=== PATIENT | male | born 1955 | race African-American/Black ===

== ENCOUNTER 2016-10-04 09:13 | Inpatient (IN) | payer BC, OTHER ==
[2016-10-04] VITALS (7 sets, daily range): BP systolic 117–156; BP diastolic 58–93; PULSE 98–103; RESP 16–22; TEMP 98.4; Ht 190.5 cm; Wt 161.6 kg
[~2016-10-04] VITALS: Ht 190.5 cm; Wt 161.6 kg
--- NOTE | 2016-10-04 10:14 | ERA ---
ER Documentation Chief Complaint Date/Time DATE: 10/04/16 TIME: 10:14 Chief Complaint RIGHT THIGH PAIN NON TRAUMATIC NO CHEST PAIN. MILD SOB WITH EXERTION. HPI 60-year-old male with multiple medical problems including hypertension, diabetes , CHF and history of DVTs presenting to the ER with worsening shortness of breath for the past 4 days and right lower extremity pain in the medial aspect of his thigh. The pain is better with rest, worse with ambulation. He denies any numbness or weakness in his extremities. He has had no associated fever, chills, chest pain, cough. [facility] and in the past they were talking about putting in an IVC filter as he had bilateral lower extremity DVTs but they did not. Patient is on Coumadin ROS All systems reviewed and are negative except as per history of present illness. Medications Home Meds Reported Medications Prednisone* (Prednisone*) 10 Mg Tab, 10 MG PO DAILY Y for PAIN, TAB 10/04/16 Acetaminophen* (Acetaminophen*) 500 MG Extra Strength Tablet, 500 MG PO Q12 Y for PAIN AND OR ELEVATED TEMP, TAB 10/04/16 Warfarin Sodium* (Coumadin*) 5 Mg Tablet, 5 MG PO DAILY, TAB 10/04/16 Atorvastatin* (Atorvastatin*) 40 Mg Tablet, 40 MG PO QHS, #30 TAB 10/04/16 Atorvastatin* (Atorvastatin*) 40 Mg Tablet, 40 MG PO QHS, #30 TAB 10/04/16 Pyridoxine Hcl* (Pyridoxine Hcl*) 50 Mg Tablet, 50 MG PO DAILY, TAB 10/04/16 Amiodarone Hcl* (Pacerone*) 200 Mg Tablet, 200 MG PO DAILY, TAB 10/04/16 Glipizide* (Glipizide*) 5 Mg Tablet, 5 MG PO DAILY, TAB 10/04/16 Krill Oil (KRILL OIL) 500 Mg Capsule, 500 MG PO DAILY, CAP 10/04/16 Multivitamins* (Theragran*) 1 Tab Tab, 1 TAB PO DAILY, TAB 10/04/16 Furosemide* (Furosemide*) 40 Mg Tablet, 40 MG PO DAILY, TAB 10/04/16 Carvedilol* (Carvedilol*) 12.5 Mg Tablet, 12.5 MG PO BID, #60 TAB 10/04/16 Lisinopril* (Lisinopril*) 10 Mg Tablet, 10 MG PO DAILY, #30 TAB 10/04/16 Allergies Allergies: Coded Allergies: No Known Allergy (Unverified , 10/04/16) PMhx/Soc Hx Respiratory Disorders: Yes (COPD,) Hx Cardiac Disorders: Yes (Hypertension, CHF) Hx Miscellaneous Medical Probl: Yes (Bilateral lower extremity DVTs) Smoking Status: Former smoker FmHx Family History: No diabetes Physical Exam Vitals Vital Signs Date Time Temp Pulse Resp B/P Pulse Ox O2 Delivery O2 Flow Rate FiO2 10/04/16 13:48 99.1 100 20 147/103 100 Nasal Cannula 2.0 10/04/16 11:30 98.1 95 24 155/90 95 Nasal Cannula 2.0 10/04/16 09:20 Nasal Cannula 2 10/04/16 09:19 97.8 105 22 134/91 95 Physical Exam Const: Appears short of breath, nontoxic, large body habitus Head: Atraumatic Eyes: Normal Conjunctiva ENT: Normal External Ears, Nose and Mouth. Neck: Full range of motion..~ No meningismus. No obvious JVD, limited exam Resp: Diminished breath sounds bilaterally, no rales or rhonchi Cardio: Tachycardic with regular rhythm, no murmurs Abd: Soft, non tender, non distended. Normal bowel sounds Skin: No petechiae or rashes Back: No midline or flank tenderness Ext: Bilateral lower extremity skin changes, no obvious edema. Right inner thigh tender to palpation, no crepitus, no obvious erythema however exam limited as patient has dark skin Neur: Awake and alert Psych: Normal Mood and Affect Result Diagram: 10/04/16 1100 10/04/16 1100 Results 24 hrs Laboratory Tests Test 10/04/16 10:13 10/04/16 11:00 Blood Gas Specimen Source Blood arterial Arterial Blood Date Drawn 10/04/2016 11:05:32 AM Arterial Blood pH (Temp corrected) 7.561 Arterial Blood pCO2 (Temp correct) 24.6mmhg Arterial Blood pO2 (Temp corrected) 70.5mmHG Arterial Blood HCO3 21.6mmol/L Arterial Blood Base Excess 0.8mmol/L Arterial Blood Oxygen Saturation 95.1mmHG Sumanth Test ACCEPTAB Arterial Blood Gas Puncture Site Left Radial Arterial Blood Carboxyhemoglobin 0.4% Arterial Blood Methemoglobin 0.3% Blood Gas A-a O2 Differential 49.8mmHg Oxyhemoglobin Percent 94.4% Total Hemoglobin 13.0g/dl Blood Gas Temperature 37.0C Blood Gas Modality ROOM AIR FiO2 21.0% Blood Gas Critical Value Read Back RICK Farrell Blood Gas Notified Whom [facility] Blood Gas Notified Time 10/04/2016 11:10:05 AM White Blood Count 9.910^3/ul Red Blood Count 4.6310^6/ul Hemoglobin 12.1g/dl Hematocrit 39.4% Mean Corpuscular Volume 85.1fl Mean Corpuscular Hemoglobin 26.1pg Mean Corpuscular Hemoglobin Concent 30.7g/dl Red Cell Distribution Width 15.8% Platelet Count 50376^3/UL Mean Platelet Volume 12.3fl Neutrophils % 77.5% Lymphocytes % 10.9% Monocytes % 10.7% Eosinophils % 0.3% Basophils % 0.2% Nucleated Red Blood Cells % 0.0/100WBC Neutrophils # 7.610^3/ul Lymphocytes # 1.110^3/ul Monocytes # 1.110^3/ul Eosinophils # 0.010^3/ul Basophils # 0.010^3/ul Nucleated Red Blood Cells # 0.010^3/ul Prothrombin Time 17.5Sec Prothrombin Time Ratio 1.4 INR International Normalized Ratio 1.43 Activated Partial Thromboplast Time 34.3Sec Sodium Level 144mmol/L Potassium Level 4.0mmol/L Chloride Level 106mmol/L Carbon Dioxide Level 27mmol/L Anion Gap 15 Blood Urea Nitrogen 15mg/dl Creatinine 1.94mg/dl Glucose Level 119mg/dl Calcium Level 9.4mg/dl Troponin I < 0.012ng/ml Current Medications Medications (Trade) Dose Ordered Sig/[place] Route PRN Reason Start Time Stop Time Status Last Admin Dose Admin Lidocaine (Xylocaine 1% (Mpf)) 5 ml ONCE ONCE SC 10/04/16 11:00 10/04/16 11:02 DC Miscellaneous Information (* Miscellaneous Pharmacy Order) DC previous hepa... ONCE ONCE XX 10/04/16 12:30 10/04/16 12:31 DC Heparin Sodium (Porcine) (Heparin (1000 Units/ml)) 10,000 unit ONCE ONCE IV 10/04/16 12:30 10/04/16 12:31 DC 6/10/17 12:34 Heparin Sodium (Porcine) (Heparin (1000 Units/ml)) 10,000 unit PER PROTOCOL PRN IV aPTT<47 10/04/16 12:30 Heparin Sodium (Porcine) 7200 unit 7,200 unit PER PROTOCOL PRN IV aPTT<47-57 10/04/16 12:30 Heparin Sodium (Porcine) 250 ml @ 0 mls/hr PER PROTOCOL IV 10/04/16 12:30 10/04/16 13:19 Sodium Chloride (NS) 500 ml @ 500 mls/hr Q1H STAT IV 10/04/16 12:13 10/04/16 13:12 DC 10/04/16 12:40 IV Flush 10 ml 10 ml STK-MED ONCE .ROUTE 10/04/16 12:39 10/04/16 12:40 DC Sodium Chloride (NS) 100 ml @ ud STK-MED ONCE .ROUTE 10/04/16 12:39 10/04/16 12:40 DC Iodixanol (Visipaque Locm) 100 ml STK-MED ONCE .ROUTE 10/04/16 12:39 10/04/16 12:40 DC Procedures/MDM Labs: CBC unremarkable BMP shows elevated creatinine INR subtherapeutic EKG: Rate/Rhythm: Sinus tachycardia at 103 bpm QRS, ST, T-waves: No changes consistent w/ acute ischemia Impression: No evidence of ischemia or arrhythmia Chest x-ray shows no acute abnormalities Right lower extremity venous ultrasound: IMPRESSION: Occlusive DVT in the right superficial femoral and popliteal veins. Ze Pelletier Physician Date Time Electronically viewed and signed by Ze Pelletier Physician on 10/04/2016 12:10 CT angiogram chest: IMPRESSION: Emboli in branches of the pulmonary artery to all lobes on the right as well as the left upper lobe. Clear lungs. Ze Pelletier Physician Date Time Electronically viewed and signed by Ze Liyah, Physician on 10/04/2016 13:01 [facility] Patient is presenting with shortness of breath and lower extremity pain. His vitals were notable for tachypnea and tachycardia. His oxygen saturation was within normal limits. However he is at high risk for pulmonary embolism. Ultrasound of the right lower extremity was ordered and confirmed DVT. CTPA was ordered and the risks of the IV contrast in the setting of renal failure was discussed with the patient. However I told him that I believe the benefits outweigh the risks at this time and he agrees. He was started on heparin IV. CT confirmed bilateral pulmonary emboli. He has no evidence of right heart strain at this time. However patient will need admission for further workup, possible IVC filter placement, and anticoagulation. Critical Care Time: 35 minutes Treatments/Evaluations: Close monitoring and treatment of unstable vital signs, cardiorespiratory, and neurologic status, while maintaining tight balance of fluid, respiratory, and cardiac interventions. This time includes discussing the case with the patient and the patients family. This time does not include all procedures stated elsewhere in this record. This time also includes reviewing old records, labs and radiological studies. This time includes examining and re-examining the patient. Additionally, this time also includes arranging care with admitting and consulting physicians. [facility] for [facility]. He will be admitted to our panel physicians. Departure Diagnosis: Primary Impression: Bilateral pulmonary embolism Additional Impressions: Right leg DVT Qualified Code: I82.431 - Deep vein thrombosis (DVT) of popliteal vein of right lower extremity, unspecified chronicity Chronic kidney disease Qualified Code: N18.9 - Chronic kidney disease, unspecified stage Condition: Serious NELLIE CABRERA MD Oct 04, 2016 10:14
--- NOTE | 2016-10-04 10:33 | RADRPT ---
PROCEDURE: XR Chest. CLINICAL INDICATION: Shortness of breath TECHNIQUE: Single frontal chest x-ray. COMPARISON: None. FINDINGS: The lungs are clear of acute infiltrates, edema, effusions, or masses.. The cardiomediastinal silho uette is unremarkable. Degenerative spondylosis of the thoracic spine is present. . IMPRESSION: No acute cardiopulmonary disease. RPTAT: QQ .Frederick Ahuja MD, MD Date Time Electronically viewed and signed by .Frederick Ahuja MD, on 10/04/2016 10:33 .L/
[2016-10-04] MEDS ORDERED: LIDOCAINE 1% (MPF) 5 ML VIAL SC ONE (11:00)
[2016-10-04 11:10] LABS: AADO2 Arterial 49.8 mmHg (7.0-24.0); Allen Test ACCEPTAB; Arterial Base Excess 0.8 mmol/L (-3.0-3); Arterial COHb 0.4 % (0.0-3.0); Arterial Fraction of Oxyhgb 94.4 % (93.0-99.0); Arterial HCO3 21.6 mmol/L (22.0-26.0); Arterial MetHb 0.3 % (0.0-1.5); MODE ROOM AIR
[2016-10-04] MEDS ORDERED: LISI10TA2 PO (11:24)
[2016-10-04] MEDS ORDERED: FURO40TA4 PO (11:25)
[2016-10-04] MEDS ORDERED: CARV12.579 PO (11:25)
[2016-10-04] MEDS ORDERED: MULTI PO (11:27)
[2016-10-04] MEDS ORDERED: KRIL500C PO (11:28)
[2016-10-04] MEDS ORDERED: GLIP5TAB13 PO (11:28)
[2016-10-04] MEDS ORDERED: AMIO200T40 PO (11:28)
[2016-10-04] MEDS ORDERED: PYRI50TA14 PO (11:29)
[2016-10-04] MEDS ORDERED: ATOR40TA68 PO (11:29)
[2016-10-04] MEDS ORDERED: WARF5TAB72 PO (11:30)
[2016-10-04] MEDS ORDERED: ACET-141 PO (11:31)
[2016-10-04] MEDS ORDERED: PRED10TA PO (11:32)
[2016-10-04 11:33] LABS: ADD SCAN DIFF NO
[2016-10-04 11:43] LABS: BASOPHILS % 0.2 % (0.0-2.0); EOSINOPHILS % 0.3 % (0.0-7.0); HEMATOCRIT 39.4 % (42.0-52.0); HEMOGLOBIN 12.1 g/dl (14.0-18.0); LYMPHOCYTES # 1.1 10^3/ul (0.8-2.9); LYMPHOCYTES % 10.9 % (15.0-51.0); MEAN CORPUSCULAR HEMOGLOBIN 26.1 pg (29.0-33.0); MEAN CORPUSCULAR HGB CONC 30.7 g/dl (32.0-37.0); MEAN CORPUSCULAR VOLUME 85.1 fl (82.0-101.0); MEAN PLATELET VOLUME 12.3 fl (7.4-10.4); MONOCYTE # 1.1 10^3/ul (0.3-0.9); MONOCYTES % 10.7 % (0.0-11.0); NEUTROPHIL # 7.6 10^3/ul (1.6-7.5); NEUTROPHILS % 77.5 % (39.0-77.0); PLATELET COUNT 172 10^3/UL (140-415); RED BLOOD COUNT 4.63 10^6/ul (4.70-6.10); RED CELL DISTRIBUTION WIDTH 15.8 % (11.5-14.5); WHITE BLOOD COUNT 9.9 10^3/ul (4.8-10.8)
[2016-10-04 11:55] LABS: ANION GAP 15 (8-16); BLOOD UREA NITROGEN 15 mg/dl (7-20); CALCIUM 9.4 mg/dl (8.4-10.2); CARBON DIOXIDE 27 mmol/L (21-31); CHLORIDE 106 mmol/L (97-110); CREATININE 1.94 mg/dl (0.61-1.24); GLUCOSE 119 mg/dl (70-220); SODIUM 144 mmol/L (135-144)
[2016-10-04 12:00] LABS: INR 1.43; PROTIME 17.5 Sec (12.2-14.2); PT RATIO 1.4
[2016-10-04 12:01] LABS: PARTIAL THROMBOPLASTIN TIME 34.3 Sec (25.0-35.0)
--- NOTE | 2016-10-04 12:10 | RADRPT ---
PROCEDURE: US Lower extremity venous CLINICAL INDICATION: SOB, not ready @ 1100 TECHNIQUE: Multiple sonographic images of the right lower extremity deep venous system was obtain ed utilizing grayscale, color-flow, compressive sonography and doppler imaging with augmentation. T he images were reviewed on a PACS workstation. COMPARISON: None. FINDINGS: There is no flow and abnormal compressibility in the right superficial femoral and popliteal veins c onsistent with nonocclusive DVT. There is normal compressibility and flow within the right common femoral vein. IMPRESSION: Occlusive DVT in the right superficial femoral and popliteal veins. These findings were discussed with Carito Frye) over the phone on 10/04/2016 at 12:10 PM . RPTAT: EE Physician Chad Date Time Electronically viewed and signed by Physician Chad on 10/04/2016 12:10 /
[2016-10-04 12:11] LABS: TROPONIN-I < 0.012 ng/ml (0.00-0.12)
[2016-10-04] MEDS ORDERED: SOD CHLORIDE 0.9% 500 ML IV STA (12:13)
[2016-10-04] MEDS ORDERED: HEPARIN 1000 UNITS/ML 10 ML INJ IV ONE ×2 (12:30→15:30)
[2016-10-04] MEDS ORDERED: HEPARIN 1000 UNITS/ML 10 ML INJ IV PRN ×5 (12:30→15:59)
[2016-10-04] MEDS: HEPARIN 25000 UNITS/250 ML 250 ML IV SCH ×2 (12:38→13:19)
[2016-10-04] MEDS ORDERED: IODIXANOL LOCM 100 ML BTL ONE (12:39)
[2016-10-04] MEDS ORDERED: SOD CHLORIDE 0.9% 100 ML ONE (12:39)
--- NOTE | 2016-10-04 13:02 | RADRPT ---
PROCEDURE: CTA Chest with contrast and with 3-D reconstructions CLINICAL INDICATION: eval for PE TECHNIQUE: The study was performed utilizing multidetector CT scanner. Direct spiral axial section s were obtained from the thoracic inlet to the upper abdomen with the use of intravenous contrast ma terial. Sagittal, coronal and 3-D reformations were obtained. The images were reviewed on a PACS wor kstation. DLP 674.57 mGycm CTDIvol 19.72, 19.91 mGy COMPARISON: Duplex sonogram of the right lower extremity from the same date FINDINGS: There are emboli in branches of the pulmonary artery to the right upper lobe, right middle lobe, rig ht lower lobe, and left upper lobe. Emboli are noted to extend into the main right pulmonary artery . There is no evidence of a saddle embolism. The lungs are clear. There is no pleural fluid. There is no pneumothorax. Heart size is within normal limits. There is no pericardial fluid. The aorta is within normal limi ts. There are no enlarged axillary or mediastinal lymph nodes. The visualized portions of the upper abdomen are unremarkable. Osseous and soft tissue structures are within normal limits. IMPRESSION: Emboli in branches of the pulmonary artery to all lobes on the right as well as the left upper lobe. Clear lungs. These findings were discussed with Carito Frye over the phone on 10/04/2016 at 12:59 PM . RPTAT: EE Physician Chad Date Time Electronically viewed and signed by Physician Chad on 10/04/2016 13:01 /
[2016-10-04] MEDS ORDERED: ONDANSETRON 4 MG INJ IV PRN ×2 (14:00→15:30)
[2016-10-04] MEDS ORDERED: ACETAMINOPHEN 325 MG TAB PO PRN ×2 (14:00→15:30)
[2016-10-04] MEDS ORDERED: HYDROCODONE/APAP (5/325) TAB PO PRN (15:30)
[2016-10-04] MEDS ORDERED: LORAZEPAM 2 MG INJ IV PRN (15:30)
[2016-10-04] MEDS ORDERED: hydrALAzine 20 MG INJ IV PRN (15:30)
[2016-10-04] MEDS ORDERED: NA PHOSPHATE/BIPHOS 133 ML ENEMA PR PRN (15:30)
[2016-10-04] MEDS ORDERED: MAGNESIUM HYDROXIDE 30ML CUP PO PRN (15:30)
[2016-10-04] MEDS ORDERED: NACL 0.9% 3 ML SYG IV SCH (15:30)
[2016-10-04] MEDS ORDERED: ALBUTEROL/IPRATROPIUM (NEB) 3 ML AMP HHN PRN (15:30)
[2016-10-04] MEDS ORDERED: DOCUSATE SODIUM 100 MG CAP PO PRN (15:30)
[2016-10-04] MEDS ORDERED: NITROGLYCERIN (SL) 0.4 MG TAB SL PRN (15:30)
[2016-10-04] MEDS ORDERED: predniSONE 10 MG TAB PO PRN (15:30)
[2016-10-04 16:10] LABS: ADD SCAN DIFF NO
[2016-10-04 16:12] LABS: BASOPHILS % 0.2 % (0.0-2.0); EOSINOPHILS % 0.3 % (0.0-7.0); HEMATOCRIT 38.4 % (42.0-52.0); HEMOGLOBIN 11.8 g/dl (14.0-18.0); LYMPHOCYTES # 1.3 10^3/ul (0.8-2.9); LYMPHOCYTES % 14.3 % (15.0-51.0); MEAN CORPUSCULAR HEMOGLOBIN 26.3 pg (29.0-33.0); MEAN CORPUSCULAR HGB CONC 30.7 g/dl (32.0-37.0); MEAN CORPUSCULAR VOLUME 85.7 fl (82.0-101.0); MEAN PLATELET VOLUME 11.9 fl (7.4-10.4); MONOCYTES % 10.6 % (0.0-11.0); NEUTROPHIL # 6.8 10^3/ul (1.6-7.5); NEUTROPHILS % 74.4 % (39.0-77.0); PLATELET COUNT 162 10^3/UL (140-415); RED BLOOD COUNT 4.48 10^6/ul (4.70-6.10); RED CELL DISTRIBUTION WIDTH 15.7 % (11.5-14.5); WHITE BLOOD COUNT 9.1 10^3/ul (4.8-10.8)
[2016-10-04 16:28] LABS: INR 1.48; PT RATIO 1.4
[2016-10-04] MEDS ORDERED: GLUCOSE GEL 15 GRAM TUBE PO PRN ×2 (16:30)
[2016-10-04] MEDS ORDERED: GLUCOSE GEL 15 GRAM TUBE BUCCAL PRN (16:30)
[2016-10-04] MEDS ORDERED: DEXTROSE 50% 50 ML SYRINGE IV PRN ×2 (16:30)
[2016-10-04] MEDS ORDERED: GLUCAGON 1 MG INJ IM PRN (16:30)
--- NOTE | 2016-10-04 17:09 | HP ---
DATE OF ADMISSION: 10/04/2016 CHIEF COMPLAINT: Shortness of breath and leg pain. HISTORY OF PRESENT ILLNESS: A 60-year-old male with past medical history of 12 prior DVTs, 6 in eac h leg, CHF, JEREMY, high cholesterol, gout, type 2 diabetes, essential hypertension, COPD, who has been having right lower extremity pain and also shortness of breath for the last 4 days. He has had ruddy e subjective chills. No fevers. No upper or lower GI bleeding. No diarrhea or constipation. No h eadaches, dizziness or loss of consciousness. He normally is supposed to take CPAP at night, but weiner s not been doing this for the last few weeks. He also did not take his Coumadin for the last 2 days . He normally takes Coumadin for his prior history of DVTs, as mentioned above. He follows up at [facility]. When he came into the ER today, he had a CTA of the chest performed that showed positive pul monary embolism in the branches of the pulmonary artery to all lobes on the right, as well as the le ft upper lobe. The patient was started on heparin drip in the ER. 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 He does not believe he has ever been diagnosed with any kind of blood disorder or clotting problems. PAST MEDICAL HISTORY: As stated above. ALLERGIES: NO KNOWN DRUG ALLERGIES. HOME MEDICATIONS: 1. Coumadin 5 mg daily. 2. Amiodarone 200 mg daily. 3. Atorvastatin 40 mg at bedtime. 4. Coreg 12.5 mg b.i.d. 5. Lisinopril 10 mg daily. 6. Tylenol 500 mg q.2h. p.r.n. 7. Lasix 40 mg daily. 8. Glipizide 5 mg daily. 9. Prednisone 10 mg daily p.r.n. 10. Multivitamin 1 tab daily. 11. Pyridoxine 50 mg daily. 12. Krill oil 500 mg daily. PAST SURGICAL HISTORY: None. SOCIAL HISTORY: Negative for smoking, drinking, or IV drug abuse. FAMILY HISTORY: Interestingly, his mother had multiple blood clots and the patient says he believes she of a large pulmonary embolism or some kind of ruptured aneurysm. He is not sure which. A lso positive diabetes in the family. PHYSICAL EXAMINATION: VITAL SIGNS: Temperature max 99.1, pulse 95 to 105, respirations 20 to 24, blood pressure is 134 to 155 systolic over 90 to 91 diastolic, satting at 95% on 2 liters nasal cannula. GENERAL: The patient is lying in bed, very large body habitus, appears slightly short of breath but alert. HEENT: Pupils equal, round, react to light. Extraocular muscles intact. NECK: Somewhat enlarged but supple. RESPIRATORY: Decreased breath sounds bilaterally, no rhonchi. CARDIOVASCULAR: S1, S2 heard. No rubs or gallops. ABDOMEN: Soft, nontender, nondistended. Normal bowel sounds. No rebound or guarding. MUSCULOSKELETAL: He has got some tenderness to palpation in the right inner thigh, but there is no redness or rashes noted. There is some dry skin on his anterior shins bilaterally, but no lower ext remity edema bilaterally. NEUROLOGIC: No focal deficits. LABORATORIES: CBC is normal. Basic metabolic panel is normal except the creatinine is 1.94. we do not know his baseline. His troponin is negative as well. We mentioned the CTA results above in th e HPI. Chest x-ray showed no acute cardiopulmonary disease. He had a lower extremity ultrasound th at showed an occlusive DVT in the right superficial femoral and popliteal veins. ASSESSMENT AND PLAN: A 60-year-old male coming in with shortness of breath and right lower extremit y pain for the last 4 days with a prior history of 12 prior blood clots, found with positive pulmona ry embolism and positive deep venous thrombosis in the right lower extremity. 1. Shortness of breath. Again, most likely secondary to PE. We will admit the patient to telemetr y floor, put him on heparin drip. Tylenol p.r.n. pain and fevers, morphine p.r.n. for pain. We connor l get a hematology/oncology consult given his prior history of 12 prior blood clots. Try to get the medical records from the [place]. Check TSH, A1c, lipid panel. Also put him on DuoNeb p.r.n. Put him on CPAP at night. Get a pulmonary consult as well. The patient may benefit from IVC filter placem ent. 2. Right lower extremity deep venous thrombosis. Again, see #1, 12 prior histories of blood clots. I will put him on heparin drip, again follow hematology/oncology recommendations as well. Conside r IVC filter placement. 3. Type 2 diabetes. Check A1c. Put him on sliding scale insulin. 4. Essential hypertension. Continue current blood pressure medications. Hold CLAUDE inhibitor for no w. 5. History of chronic obstructive pulmonary disease. Again see #1. Kelli d[place]. 6. History of gout. No present issue, continue to monitor for now. 7. High cholesterol. Check a statin level. 8. History of congestive heart failure. Check a 2D echocardiogram as well. Continue current cardi ac medications. 9. Gastrointestinal prophylaxis. He will be on a H2 brandon. 10. Deep venous thrombosis prophylaxis. Heparin drip. Also get PT and OT consults. Dictated By: MEGGAN DAMON Conf#: [id number] DID#: [id number]
[2016-10-04] MEDS: INSULIN ASPART [NOVOLOG] 3 ML PEN SC SCH ×2 (17:40→20:42)
[2016-10-04] MEDS: ATORVASTATIN 40 MG TAB PO SCH (20:57)
[2016-10-04] MEDS ORDERED: ATORVASTATIN 40 MG TAB PO SCH (21:00)
[2016-10-05] VITALS (12 sets, daily range): BP systolic 106–135; BP diastolic 59–69; PULSE 85–94; RESP 16–20
[2016-10-05] MEDS: HEPARIN 25000 UNITS/250 ML 250 ML IV SCH ×4 (00:31→19:03)
[2016-10-05] MEDS: ACCU-CHEK XX SCH (02:00)
[2016-10-05] MEDS: morphine 2 MG INJ IV PRN ×3 (05:41→14:09)
[2016-10-05] MEDS: INSULIN ASPART [NOVOLOG] 3 ML PEN SC SCH ×4 (07:55→20:41)
[2016-10-05 08:01] LABS: CHOL/HDL RATIO 5.9 RATIO
[2016-10-05 08:28] LABS: THYROID STIMULATING HORMONE 1.7 MIU/L (0.465-4.680)
[2016-10-05] MEDS: FUROSEMIDE 40 MG TAB PO SCH (08:50)
[2016-10-05] MEDS: AMIODARONE 200 MG TAB PO SCH (08:50)
[2016-10-05] MEDS: PYRIDOXINE 50 MG TAB PO SCH (08:51)
[2016-10-05] MEDS: MULTIVITAMINS THERAPEUTIC TAB PO SCH (08:51)
[2016-10-05] MEDS ORDERED: KRILL OIL 500 MG PO SCH (09:00)
[2016-10-05 09:07] LABS: ADD SCAN DIFF NO
[2016-10-05 09:08] LABS: BASOPHILS % 0.3 % (0.0-2.0); CALCIUM 8.5 mg/dl (8.4-10.2); CREATININE 2.29 mg/dl (0.61-1.24); EOSINOPHILS # 0.1 10^3/ul (0.0-0.5); EOSINOPHILS % 0.8 % (0.0-7.0); HEMATOCRIT 33.6 % (42.0-52.0); HEMOGLOBIN 10.3 g/dl (14.0-18.0); LYMPHOCYTES # 1.3 10^3/ul (0.8-2.9); LYMPHOCYTES % 17.4 % (15.0-51.0); MAGNESIUM 1.7 mg/dl (1.7-2.5); MEAN CORPUSCULAR HEMOGLOBIN 26.1 pg (29.0-33.0); MEAN CORPUSCULAR HGB CONC 30.7 g/dl (32.0-37.0); MEAN CORPUSCULAR VOLUME 85.3 fl (82.0-101.0); MEAN PLATELET VOLUME 12.2 fl (7.4-10.4); MONOCYTES % 13.5 % (0.0-11.0); NEUTROPHILS % 67.6 % (39.0-77.0); PHOSPHORUS 4.1 mg/dl (2.5-4.9); PLATELET COUNT 147 10^3/UL (140-415); POTASSIUM 3.8 mmol/L (3.5-5.1); RED BLOOD COUNT 3.94 10^6/ul (4.70-6.10); RED CELL DISTRIBUTION WIDTH 15.9 % (11.5-14.5); WHITE BLOOD COUNT 7.4 10^3/ul (4.8-10.8)
[2016-10-05] MEDS ORDERED: MAGNESIUM SULFATE 1 GM/D5W 100 ML IVPB ONE (13:30)
--- NOTE | 2016-10-05 14:01 | RADRPT ---
Echocardiogram Report Patient Name: CECILIA MCINTYRE Gender: Male Date: 1955 Study Date: 05-Oct-2016 Backside Grinder: ISABEL Location: E Ref. Physician: MEGGAN DEAN Quality: Technically Difficult Study Procedures: Transthoracic echocardiogram examination. Indications: Pulmonary embolism. Shortness of breath. 2D/M Mode Doppler Measurement Value Normal Range Measurement Value Normal Range LVIDd 2D 4.6 3.5 - 5.6 cm AV Peak Dennis 1.0 m/sec LVIDs 2D 3.7 2.1 - 4.1 cm AV Peak PG 4.4 mmHg LVPWd 2D 1.5 0.6 - 1.1 cm LVOT Peak Dennis 0.9 m/sec IVSd 2D 1.5 0.6 - 1.1 cm LVOT Peak PG 3.1 mmHg EDV 2D 98.5 cm3 MV E Peak Dennis 0.5 m/sec ESV 2D 49.3 cm3 MV A Peak Dennis 0.7 m/sec LA Dimen 2D 2.9 2.3 - 4.0 cm MV E/A 0.8 MV Decel Time 230 msec MV Decel Conway 2 MV E/A 0.8 TAPSE 2.1 cm Findings Left Ventricle: Normal left ventricular cavity size. Lower limits of normal left ventricular systolic function. Tissue Doppler/Mitral Doppler indices are consistent with impaired relaxation (Stage I diastolic dysfunction). Mild concentric left ventricular hypertrophy. The left ventricular ejection fraction is visually estimated at 50 %. Right Ventricle: Normal right ventricular size. Normal right ventricular systolic function. Right Atrium: The right atrium is normal in size and appearance. Atrial Septum: The atrial septum is not well visualized. Mitral Valve: Normal appearance of the mitral valve leaflets. Trivial mitral regurgitation. Aortic Valve: Normal appearance and function of the aortic valve, imaged only from apical views. No hemodynamically significant aortic stenosis by Doppler. No aortic regurgitation. Tricuspid Valve: Normal appearance of the tricuspid valve. There is trivial tricuspid regurgitation. Pulmonic Valve: The pulmonic valve is not well visualized. Pericardium: Normal pericardium with no significant pericardial effusion. Aorta: The aorta is not well visualized. IVC: The inferior vena cava is not well visualized. Pulmonary Artery: Pulmonary artery is not well visualized. Conclusions 1.Normal left ventricular cavity size. Lower limits of normal left ventricular systolic function. Tissue Doppler/Mitral Doppler indices are consistent with impaired relaxation (Stage I diastolic dysfunction). Mild concentric left ventricular hypertrophy. The left ventricular ejection fraction is visually estimated at 50 %. 2.Normal appearance of the mitral valve leaflets. Trivial mitral regurgitation. 3.Normal appearance of the tricuspid valve. There is trivial tricuspid regurgitation. Electronically Signed By: Santiago Yoder 05-Oct-2016 14:00:35 -4600 Patient Name: CECILIA MCINTYRE Study Date: 05-Oct-2016 [id number]
--- NOTE | 2016-10-05 14:29 | CONS ---
Date/Time of Note Date/Time of Note DATE: 10/05/16 TIME: 14:18 Assessment/Plan Assessment/Plan Chief Complaint/Hosp Course 60 year old male with: 1. 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 Denies h/o PEs in the past. 2. Presents with subtherapeutic INR on warfarin. 3. Admits to occasional non compliance with medications due to access. 4. Now admitted with DVT and EXTENSIVE bilateral pulmonary emboli. Discussion and Plan: He is obviously very high risk for recurrence. Its not clear if a hypercoagulable work up has been done, but frankly based on his history, it will not be instructive. He needs life long anticoagulation no matter what is found. I will defer further work up in that area to Dr. Gomez/Lisseth, since the patient may not follow up with us for results of these tests anyway. In regards to the current management. Xarelto is a better choice over warfarin , as he will have less chance of being sub-therapeutic. Finally, he has compliance issues. The only reason for me to recommend and IVC filter would be if compliance will prevent him from taking his medications in the future. Otherwise proper anticoagulation is the best treatment. Studies of IVC filters show that the patients with filter have a higher senior living risk of DVT recurrence. Problems: Consultation Date/Type/Reason Admit Date/Time Oct 04, 2016 at 13:57 Date of Consultation: Oct 05, 2016 Type of Consultation: Hematology Oncology Reason for Consultation Recurrent DVT and now PEs Referring Provider: MEGGAN DEAN of Present Illness 60 year old male who gets his care through [facility]. Has a stated history of "twelve" prior blood clots in his legs. He is on life long warfarin therapy, but his compliance is not clear. He admits to not taking it for a few days when the right leg pain limited him from getting to his medications. He admits he is not taking care of himself well. Now he presents with Right leg DVT, and CT PA showing diffuse bilateral pulmonary emboli. He does admit to shortness of breath but thought it was related to his heart failure. He was subtherapeutic no warfarin when admitted with INR about 1.4, and is now on heparin. Constitutional: chills, diaphoresis, disoriented, febrile, improved, no complaints, other, poor po, requiring IVF, requiring O2 Respiratory: cough, no complaints, other, pain, pleuritic pain, shortness of breath, sputum, wheezing Cardiovascular: chest pain, edema, lightheadedness, no complaints, orthopenea, other, palpitations, paroxysmal nocturnal dyspnea Gastrointestinal: No blood, No constipation, No decreased appetite, No diarrhea , No flatus, No nausea, No no complaints, No other, No pain, No passing stool, No vomiting Musculoskeletal: back pain, bone/joint pain, neck pain, no complaints, other, restricted range of motion, swelling Neurologic: No confusion, No dizziness, No focal-weakness, No headache, No no complaints, No other, No seizure, No syncope Endocrine: no complaints Psychological: no complaints Past Medical History Medical History: congestive heart failure, high cholesterol, other (Recurrent DVT's x 12 in the past.) Family History Significant Family History: no pertinent family hx Social History Smoking Status: Former smoker Exam/Review of Systems Vital Signs Vitals Vital Signs Date Time Temp Pulse Resp B/P Pulse Ox O2 Delivery O2 Flow Rate FiO2 10/05/16 12:06 94 10/05/16 11:46 98.6 18 106/64 95 10/05/16 07:21 Nasal Cannula 3.0 Intake and Output 10/04/16 10/04/16 10/05/16 15:00 23:00 07:00 Intake Total 440 ml 470 ml Output Total 120 ml Balance 320 ml 470 ml Exam Large and obese male laying in bed on oxygen. Bilateral leg swelling NAD Abd obese, non tender. Heart - regular. Chest - clear. Constitutional: alert, oriented, well developed Psych: nl mood/affect, no complaints Head: atraumatic, normocephalic Eyes: EOMI, PERRL, nl conjunctiva, nl lids, nl sclera ENMT: nl external ears & nose, nl lips & teeth, nl nasal mucosa & septum Neck: non-tender, supple Respiratory: clear to auscultation, normal air movement Cardiovascular: nl pulses, regular rate and rhythm Gastrointestinal: nl liver, spleen, non-tender, soft Musculoskeletal: nl extremities to inspection, nl gait and stance Extremities: normal pulses Neurological: [employer]ISTRATOR II-XII intact, nl mental status, nl speech, nl strength Skin: nl turgor, No rash or lesions Lymph: nl lymph nodes Results Result Diagram: 10/05/16 0558 10/05/16 0558 Results 24 hrs Laboratory Tests Test 10/04/16 16:00 10/04/16 17:33 10/04/16 20:05 10/04/16 23:05 White Blood Count 9.1 Red Blood Count 4.48 L Hemoglobin 11.8 L Hematocrit 38.4 L Mean Corpuscular Volume 85.7 Mean Corpuscular Hemoglobin 26.3 L Mean Corpuscular Hemoglobin Concent 30.7 L Red Cell Distribution Width 15.7 H Platelet Count 162 Mean Platelet Volume 11.9 H Neutrophils % 74.4 Lymphocytes % 14.3 L Monocytes % 10.6 Eosinophils % 0.3 Basophils % 0.2 Nucleated Red Blood Cells % 0.0 Neutrophils # 6.8 Lymphocytes # 1.3 Monocytes # 1.0 H Eosinophils # 0.0 Basophils # 0.0 Nucleated Red Blood Cells # 0.0 Prothrombin Time 18.0 H Prothrombin Time Ratio 1.4 INR International Normalized Ratio 1.48 Activated Partial Thromboplast Time 108.0 *H 72.4 *H Free Thyroxine 1.44 Bedside Glucose 117 124 Test 10/05/16 05:55 10/05/16 05:58 10/05/16 08:03 10/05/16 11:45 Activated Partial Thromboplast Time 48.5 H White Blood Count 7.4 Red Blood Count 3.94 L Hemoglobin 10.3 L Hematocrit 33.6 L Mean Corpuscular Volume 85.3 Mean Corpuscular Hemoglobin 26.1 L Mean Corpuscular Hemoglobin Concent 30.7 L Red Cell Distribution Width 15.9 H Platelet Count 147 Mean Platelet Volume 12.2 H Neutrophils % 67.6 Lymphocytes % 17.4 Monocytes % 13.5 H Eosinophils % 0.8 Basophils % 0.3 Nucleated Red Blood Cells % 0.0 Neutrophils # 5.0 Lymphocytes # 1.3 Monocytes # 1.0 H Eosinophils # 0.1 Basophils # 0.0 Nucleated Red Blood Cells # 0.0 Sodium Level 141 Potassium Level 3.8 Chloride Level 107 Carbon Dioxide Level 23 Anion Gap 15 Blood Urea Nitrogen 23 H Creatinine 2.29 H Glucose Level 109 Hemoglobin A1c 6.1 H Calcium Level 8.5 Phosphorus Level 4.1 Magnesium Level 1.7 Triglycerides Level 137 Cholesterol Level 149 LDL Cholesterol, Calculated 97 HDL Cholesterol 25 L Cholesterol/HDL Ratio 5.9 Thyroid Stimulating Hormone (TSH) 1.700 Bedside Glucose 116 145 Test 10/05/16 12:27 Activated Partial Thromboplast Time 140.2 *H Medications Medications Current Medications Ondansetron HCl (Zofran Inj) 4 mg Q6H PRN IV NAUSEA AND/OR VOMITING; Start 02/10 at 15:30 Acetaminophen (Tylenol Tab) 650 mg Q6H PRN PO PAIN LEVEL 1-3 OR FEVER; Start at 15:30 Acetaminophen/ Hydrocodone Bitart ([place] (5/325)) 1 tab Q6H PRN PO MODERATE PAIN LEVEL 4-6; Start 10/04/16 at 15:30 Morphine Sulfate (morphine) 2 mg Q4H PRN IV SEVERE PAIN LEVEL 7-10 Last administered on 10/05/16 14:09; Admin Dose 2 MG; Start 10/04/16 at 15:30 Docusate Sodium (Colace) 100 mg Q12H PRN PO CONSTIPATION; Start 10/04/16 at 15: 30 Magnesium Hydroxide (Milk Of Mag) 30 ml DAILY PRN PO CONSTIPATION; Start at 15:30 Sodium Biphosphate/ Sodium Phosphate (Fleet Enema) 133 ml DAILY PRN [place] CONSTIPATION; Start 10/04/16 at 15:30 Lorazepam (Ativan) 0.5 mg Q6H PRN IV ANXIETY; Start 10/04/16 at 15:30 Hydralazine HCl (Apresoline) 10 mg Q6H PRN IV ELEVATED BLOOD PRESSURE; Start at 15:30 Nitroglycerin (Nitroglycerin (Sl Tab) 0.4 Mg) 1 tab Q5M PRN SL ANGINA; Start at 15:30 Amiodarone HCl (Cordarone) 200 mg DAILY PO Last administered on 10/05/16 08:50 ; Admin Dose 200 MG; Start 10/05/16 at 09:00 Atorvastatin Calcium (Lipitor) 40 mg QHS PO Last administered on 10/04/16 20: 57; Admin Dose 40 MG; Start 10/04/16 at 21:00 Carvedilol (Coreg) 12.5 mg BID PO Last administered on 10/05/16 08:50; Admin Dose 12.5 MG; Start 10/04/16 at 21:00 Furosemide (Lasix) 40 mg DAILY PO Last administered on 10/05/16 08:50; Admin Dose 40 MG; Start 10/05/16 at 09:00 Multivitamins Therapeutic (Theragran) 1 tab DAILY PO Last administered on 08:51; Admin Dose 1 TAB; Start 10/05/16 at 09:00 Prednisone (Prednisone) 10 mg DAILY PRN PO PAIN; Start 10/04/16 at 15:30; Status Future Hold Pyridoxine HCl (Vitamin B6) 50 mg DAILY PO Last administered on 10/05/16 08:51 ; Admin Dose 50 MG; Start 10/05/16 at 09:00 Diagnostic Test (Pha) (Accu-Chek) 1 ea 02 XX ; Start 10/05/16 at 02:00 Miscellaneous Information 1 ea NOTE XX ; Start 10/04/16 at 16:30 Glucose (Glutose) 15 gm Q15M PRN PO DECREASED GLUCOSE; Start 10/04/16 at 16:30 Glucose (Glutose) 22.5 gm Q15M PRN PO DECREASED GLUCOSE; Start 10/04/16 at 16: 30 Dextrose (D50w Syringe) 25 ml Q15M PRN IV DECREASED GLUCOSE; Start 10/04/16 at 16:30 Dextrose (D50w Syringe) 50 ml Q15M PRN IV DECREASED GLUCOSE; Start 10/04/16 at 16:30 Glucagon (Glucagen) 1 mg Q15M PRN IM DECREASED GLUCOSE; Start 10/04/16 at 16:30 Glucose 15 gm 15 gm Q15M PRN BUCCAL DECREASED GLUCOSE; Start 10/04/16 at 16:30 Magnesium Sulfate/ Dextrose (Magnesium Sulfate 1 Gm/D5W) 100 ml @ 100 mls/hr ONCE ONCE IVPB Last administered on 10/05/16 14:06; Admin Dose 100 MLS/HR; Start 10/05/16 at 13:30; Stop 10/05/16 at 14:29 AMILCAR SONG MD Oct 05, 2016 14:28
--- NOTE | 2016-10-05 15:14 | PN ---
Date/Time of Note Date/Time of Note DATE: 10/05/16 TIME: 15:09 Assessment/Plan VTE Prophylaxis VTE Prophylaxis Intervention: heparin Lines/Catheters IV Catheter Type (from Nrsg): Peripheral IV Assessment/Plan Chief Complaint/Hosp Course ASSESSMENT AND PLAN: 60-year-old male coming in with shortness of breath and right lower extremity pain for the last 4 days with a prior history of 12 prior blood clots, found with positive pulmonary embolism and positive deep venous thrombosis in the right lower extremity. 1. Shortness of breath. Again, most likely secondary to PE. - continue telemetry floor, heparin drip. - Tylenol p.r.n. pain and fevers, morphine p.r.n. for pain, DuoNeb p.r.n - CPAP at night. - appreciate hematology/oncology consult given his prior history of 12 prior blood clots. Will need to decide if pt can get Xarelto (he says he's taken this before, but [facility]) The patient may benefit from IVC filter placement, since compliance with Coumadin appears to be an issue - discuss with heme/Onc team.. 2. Right lower extremity deep venous thrombosis. Again, see #1, 12 prior histories of blood clots. - continue heparin drip, again follow hematology/oncology recommendations as well. - again, Consider IVC filter placement. 3. Type 2 diabetes - f/u A1c, sliding scale insulin. 4. Essential hypertension. Continue current blood pressure medications. Hold CLAUDE inhibitor for now. 5. History of chronic obstructive pulmonary disease. Again see #1. DuoNeb p.r.n. 6. History of gout. No present issue, continue to monitor for now. 7. High cholesterol. Check a statin level. 8. History of congestive heart failure - f/u 2D echocardiogram as well. - Continue current cardiac medications. 9. Gastrointestinal prophylaxis - H2 brandon. 10. Deep venous thrombosis prophylaxis. Heparin drip. Also get PT and OT consults. Problems: Subjective 24 Hr Interval Summary Free Text/Dictation Pt has less SOB, seen by Heme/Onc team. Exam/Review of Systems Vital Signs Vitals Vital Signs Date Time Temp Pulse Resp B/P Pulse Ox O2 Delivery O2 Flow Rate FiO2 10/05/16 12:06 94 10/05/16 11:46 98.6 18 106/64 95 10/05/16 07:21 Nasal Cannula 3.0 Intake and Output 10/04/16 10/04/16 10/05/16 15:00 23:00 07:00 Intake Total 440 ml 470 ml Output Total 120 ml Balance 320 ml 470 ml Exam GENERAL: The patient is lying in bed, less SOB, obese HEENT: Pupils equal, round, react to light. Extraocular muscles intact. NECK: Somewhat enlarged but supple. RESPIRATORY: less decreased breath sounds bilaterally, no rhonchi. CARDIOVASCULAR: S1, S2 heard. No rubs or gallops. ABDOMEN: Soft, nontender, nondistended. Normal bowel sounds. No rebound or guarding. MUSCULOSKELETAL: He has got some tenderness to palpation in the right inner thigh, but there is no redness or rashes noted. There is some dry skin on his anterior shins bilaterally, but no lower extremity edema bilaterally. NEUROLOGIC: No focal deficits. Results Result Diagram: 10/05/16 0558 10/05/16 0558 Results 24 hrs Laboratory Tests Test 10/04/16 16:00 10/04/16 17:33 10/04/16 20:05 10/04/16 23:05 White Blood Count 9.1 Red Blood Count 4.48 L Hemoglobin 11.8 L Hematocrit 38.4 L Mean Corpuscular Volume 85.7 Mean Corpuscular Hemoglobin 26.3 L Mean Corpuscular Hemoglobin Concent 30.7 L Red Cell Distribution Width 15.7 H Platelet Count 162 Mean Platelet Volume 11.9 H Neutrophils % 74.4 Lymphocytes % 14.3 L Monocytes % 10.6 Eosinophils % 0.3 Basophils % 0.2 Nucleated Red Blood Cells % 0.0 Neutrophils # 6.8 Lymphocytes # 1.3 Monocytes # 1.0 H Eosinophils # 0.0 Basophils # 0.0 Nucleated Red Blood Cells # 0.0 Prothrombin Time 18.0 H Prothrombin Time Ratio 1.4 INR International Normalized Ratio 1.48 Activated Partial Thromboplast Time 108.0 *H 72.4 *H Free Thyroxine 1.44 Bedside Glucose 117 124 Test 10/05/16 05:55 10/05/16 05:58 10/05/16 08:03 10/05/16 11:45 Activated Partial Thromboplast Time 48.5 H White Blood Count 7.4 Red Blood Count 3.94 L Hemoglobin 10.3 L Hematocrit 33.6 L Mean Corpuscular Volume 85.3 Mean Corpuscular Hemoglobin 26.1 L Mean Corpuscular Hemoglobin Concent 30.7 L Red Cell Distribution Width 15.9 H Platelet Count 147 Mean Platelet Volume 12.2 H Neutrophils % 67.6 Lymphocytes % 17.4 Monocytes % 13.5 H Eosinophils % 0.8 Basophils % 0.3 Nucleated Red Blood Cells % 0.0 Neutrophils # 5.0 Lymphocytes # 1.3 Monocytes # 1.0 H Eosinophils # 0.1 Basophils # 0.0 Nucleated Red Blood Cells # 0.0 Sodium Level 141 Potassium Level 3.8 Chloride Level 107 Carbon Dioxide Level 23 Anion Gap 15 Blood Urea Nitrogen 23 H Creatinine 2.29 H Glucose Level 109 Hemoglobin A1c 6.1 H Calcium Level 8.5 Phosphorus Level 4.1 Magnesium Level 1.7 Triglycerides Level 137 Cholesterol Level 149 LDL Cholesterol, Calculated 97 HDL Cholesterol 25 L Cholesterol/HDL Ratio 5.9 Thyroid Stimulating Hormone (TSH) 1.700 Bedside Glucose 116 145 Test 10/05/16 12:27 Activated Partial Thromboplast Time 140.2 *H Medications Medications Current Medications Ondansetron HCl (Zofran Inj) 4 mg Q6H PRN IV NAUSEA AND/OR VOMITING; Start 02/10 at 15:30 Acetaminophen (Tylenol Tab) 650 mg Q6H PRN PO PAIN LEVEL 1-3 OR FEVER; Start at 15:30 Acetaminophen/ Hydrocodone Bitart ([place] (5/325)) 1 tab Q6H PRN PO MODERATE PAIN LEVEL 4-6; Start 10/04/16 at 15:30 Morphine Sulfate (morphine) 2 mg Q4H PRN IV SEVERE PAIN LEVEL 7-10 Last administered on 10/05/16t 14:09; Admin Dose 2 MG; Start 10/04/16 at 15:30 Docusate Sodium (Colace) 100 mg Q12H PRN PO CONSTIPATION; Start 10/04/16 at 15: 30 Magnesium Hydroxide (Milk Of Mag) 30 ml DAILY PRN PO CONSTIPATION; Start at 15:30 Sodium Biphosphate/ Sodium Phosphate (Fleet Enema) 133 ml DAILY PRN [place] CONSTIPATION; Start 10/04/16 at 15:30 Lorazepam (Ativan) 0.5 mg Q6H PRN IV ANXIETY; Start 10/04/16 at 15:30 Hydralazine HCl (Apresoline) 10 mg Q6H PRN IV ELEVATED BLOOD PRESSURE; Start at 15:30 Nitroglycerin (Nitroglycerin (Sl Tab) 0.4 Mg) 1 tab Q5M PRN SL ANGINA; Start at 15:30 Amiodarone HCl (Cordarone) 200 mg DAILY PO Last administered on 10/05/16 08:50 ; Admin Dose 200 MG; Start 10/05/16 at 09:00 Atorvastatin Calcium (Lipitor) 40 mg QHS PO Last administered on 10/04/16 20: 57; Admin Dose 40 MG; Start 10/04/16 at 21:00 Carvedilol (Coreg) 12.5 mg BID PO Last administered on 10/05/16 08:50; Admin Dose 12.5 MG; Start 10/04/16 at 21:00 Furosemide (Lasix) 40 mg DAILY PO Last administered on 10/05/16 08:50; Admin Dose 40 MG; Start 10/05/16 at 09:00 Multivitamins Therapeutic (Theragran) 1 tab DAILY PO Last administered on 08:51; Admin Dose 1 TAB; Start 10/05/16 at 09:00 Prednisone (Prednisone) 10 mg DAILY PRN PO PAIN; Start 10/04/16 at 15:30; Status Future Hold Pyridoxine HCl (Vitamin B6) 50 mg DAILY PO Last administered on 10/05/16 08:51 ; Admin Dose 50 MG; Start 10/05/16 at 09:00 Diagnostic Test (Pha) (Accu-Chek) 1 ea 02 XX ; Start 10/05/16 at 02:00 Miscellaneous Information 1 ea NOTE XX ; Start 10/04/16 at 16:30 Glucose (Glutose) 15 gm Q15M PRN PO DECREASED GLUCOSE; Start 10/04/16 at 16:30 Glucose (Glutose) 22.5 gm Q15M PRN PO DECREASED GLUCOSE; Start 10/04/16 at 16: 30 Dextrose (D50w Syringe) 25 ml Q15M PRN IV DECREASED GLUCOSE; Start 10/04/16 at 16:30 Dextrose (D50w Syringe) 50 ml Q15M PRN IV DECREASED GLUCOSE; Start 10/04/16 at 16:30 Glucagon (Glucagen) 1 mg Q15M PRN IM DECREASED GLUCOSE; Start 10/04/16 at 16:30 Glucose (Glutose) 15 gm Q15M PRN BUCCAL DECREASED GLUCOSE; Start 10/04/16 at 16 :30 MEGGAN DEAN Oct 05, 2016 15:14
--- NOTE | 2016-10-05 15:18 | PN ---
Date/Time of Note Date/Time of Note DATE: 10/05/16 TIME: 15:16 Assessment/Plan VTE Prophylaxis VTE Prophylaxis Intervention: other Lines/Catheters IV Catheter Type (from Nrs): Peripheral IV Subjective 24 Hr Interval Summary Free Text/Dictation . Exam/Review of Systems Vital Signs Vitals Vital Signs Date Time Temp Pulse Resp B/P Pulse Ox O2 Delivery O2 Flow Rate FiO2 10/05/16 12:06 94 10/05/16 11:46 98.6 18 106/64 95 10/05/16 07:21 Nasal Cannula 3.0 Intake and Output 10/04/16 10/04/16 10/05/16 15:00 23:00 07:00 Intake Total 440 ml 470 ml Output Total 120 ml Balance 320 ml 470 ml Results Result Diagram: 10/05/16 0558 10/05/16 0558 Results 24 hrs Laboratory Tests Test 10/04/16 16:00 10/04/16 17:33 10/04/16 20:05 10/04/16 23:05 White Blood Count 9.1 Red Blood Count 4.48 L Hemoglobin 11.8 L Hematocrit 38.4 L Mean Corpuscular Volume 85.7 Mean Corpuscular Hemoglobin 26.3 L Mean Corpuscular Hemoglobin Concent 30.7 L Red Cell Distribution Width 15.7 H Platelet Count 162 Mean Platelet Volume 11.9 H Neutrophils % 74.4 Lymphocytes % 14.3 L Monocytes % 10.6 Eosinophils % 0.3 Basophils % 0.2 Nucleated Red Blood Cells % 0.0 Neutrophils # 6.8 Lymphocytes # 1.3 Monocytes # 1.0 H Eosinophils # 0.0 Basophils # 0.0 Nucleated Red Blood Cells # 0.0 Prothrombin Time 18.0 H Prothrombin Time Ratio 1.4 INR International Normalized Ratio 1.48 Activated Partial Thromboplast Time 108.0 *H 72.4 *H Free Thyroxine 1.44 Bedside Glucose 117 124 Test 10/05/16 05:55 10/05/16 05:58 10/05/16 08:03 10/05/16 11:45 Activated Partial Thromboplast Time 48.5 H White Blood Count 7.4 Red Blood Count 3.94 L Hemoglobin 10.3 L Hematocrit 33.6 L Mean Corpuscular Volume 85.3 Mean Corpuscular Hemoglobin 26.1 L Mean Corpuscular Hemoglobin Concent 30.7 L Red Cell Distribution Width 15.9 H Platelet Count 147 Mean Platelet Volume 12.2 H Neutrophils % 67.6 Lymphocytes % 17.4 Monocytes % 13.5 H Eosinophils % 0.8 Basophils % 0.3 Nucleated Red Blood Cells % 0.0 Neutrophils # 5.0 Lymphocytes # 1.3 Monocytes # 1.0 H Eosinophils # 0.1 Basophils # 0.0 Nucleated Red Blood Cells # 0.0 Sodium Level 141 Potassium Level 3.8 Chloride Level 107 Carbon Dioxide Level 23 Anion Gap 15 Blood Urea Nitrogen 23 H Creatinine 2.29 H Glucose Level 109 Hemoglobin A1c 6.1 H Calcium Level 8.5 Phosphorus Level 4.1 Magnesium Level 1.7 Triglycerides Level 137 Cholesterol Level 149 LDL Cholesterol, Calculated 97 HDL Cholesterol 25 L Cholesterol/HDL Ratio 5.9 Thyroid Stimulating Hormone (TSH) 1.700 Bedside Glucose 116 145 Test 10/05/16 12:27 Activated Partial Thromboplast Time 140.2 *H Medications Medications Current Medications Ondansetron HCl (Zofran Inj) 4 mg Q6H PRN IV NAUSEA AND/OR VOMITING; Start 02/10 at 15:30 Acetaminophen (Tylenol Tab) 650 mg Q6H PRN PO PAIN LEVEL 1-3 OR FEVER; Start at 15:30 Acetaminophen/ Hydrocodone Bitart ([place] (5/325)) 1 tab Q6H PRN PO MODERATE PAIN LEVEL 4-6; Start 10/04/16 at 15:30 Morphine Sulfate (morphine) 2 mg Q4H PRN IV SEVERE PAIN LEVEL 7-10 Last administered on 10/05/16t 14:09; Admin Dose 2 MG; Start 10/04/16 at 15:30 Docusate Sodium (Colace) 100 mg Q12H PRN PO CONSTIPATION; Start 10/04/16 at 15: 30 Magnesium Hydroxide (Milk Of Mag) 30 ml DAILY PRN PO CONSTIPATION; Start at 15:30 Sodium Biphosphate/ Sodium Phosphate (Fleet Enema) 133 ml DAILY PRN [place] CONSTIPATION; Start 10/04/16 at 15:30 Lorazepam (Ativan) 0.5 mg Q6H PRN IV ANXIETY; Start 10/04/16 at 15:30 Hydralazine HCl (Apresoline) 10 mg Q6H PRN IV ELEVATED BLOOD PRESSURE; Start at 15:30 Nitroglycerin (Nitroglycerin (Sl Tab) 0.4 Mg) 1 tab Q5M PRN SL ANGINA; Start at 15:30 Amiodarone HCl (Cordarone) 200 mg DAILY PO Last administered on 10/05/16 08:50 ; Admin Dose 200 MG; Start 10/05/16 at 09:00 Atorvastatin Calcium (Lipitor) 40 mg QHS PO Last administered on 10/04/16 20: 57; Admin Dose 40 MG; Start 10/04/16 at 21:00 Carvedilol (Coreg) 12.5 mg BID PO Last administered on 10/05/16 08:50; Admin Dose 12.5 MG; Start 10/04/16 at 21:00 Furosemide (Lasix) 40 mg DAILY PO Last administered on 10/05/16 08:50; Admin Dose 40 MG; Start 10/05/16 at 09:00 Multivitamins Therapeutic (Theragran) 1 tab DAILY PO Last administered on 08:51; Admin Dose 1 TAB; Start 10/05/16 at 09:00 Prednisone (Prednisone) 10 mg DAILY PRN PO PAIN; Start 10/04/16 at 15:30; Status Future Hold Pyridoxine HCl (Vitamin B6) 50 mg DAILY PO Last administered on 10/05/16 08:51 ; Admin Dose 50 MG; Start 10/05/16 at 09:00 Diagnostic Test (Pha) (Accu-Chek) 1 ea 02 XX ; Start 10/05/16 at 02:00 Miscellaneous Information 1 ea NOTE XX ; Start 10/04/16 at 16:30 Glucose (Glutose) 15 gm Q15M PRN PO DECREASED GLUCOSE; Start 10/04/16 at 16:30 Glucose (Glutose) 22.5 gm Q15M PRN PO DECREASED GLUCOSE; Start 10/04/16 at 16: 30 Dextrose (D50w Syringe) 25 ml Q15M PRN IV DECREASED GLUCOSE; Start 10/04/16 at 16:30 Dextrose (D50w Syringe) 50 ml Q15M PRN IV DECREASED GLUCOSE; Start 10/04/16 at 16:30 Glucagon (Glucagen) 1 mg Q15M PRN IM DECREASED GLUCOSE; Start 10/04/16 at 16:30 Glucose (Glutose) 15 gm Q15M PRN BUCCAL DECREASED GLUCOSE; Start 10/04/16 at 16 :30 MEGGAN DEAN Oct 05, 2016 15: at 15:30 Acetaminophen/ Hydrocodone Bitart ([place] (5/325)) 1 tab Q6H PRN PO MODERATE PAIN LEVEL 4-6; Start 10/04/16 at 15:30 Morphine Sulfate (morphine) 2 mg Q4H PRN IV SEVERE PAIN LEVEL 7-10 Last administered on 10/05/16 14:09; Admin Dose 2 MG; Start 10/04/16 at 15:30 Docusate Sodium (Colace) 100 mg Q12H PRN PO CONSTIPATION; Start 10/04/16 at 15: 30 Magnesium Hydroxide (Milk Of Mag) 30 ml DAILY PRN PO CONSTIPATION; Start at 15:30 Sodium Biphosphate/ Sodium Phosphate (Fleet Enema) 133 ml DAILY PRN [place] CONSTIPATION; Start 10/04/16 at 15:30 Lorazepam (Ativan) 0.5 mg Q6H PRN IV ANXIETY; Start 10/04/16 at 15:30 Hydralazine HCl (Apresoline) 10 mg Q6H PRN IV ELEVATED BLOOD PRESSURE; Start at 15:30 Nitroglycerin (Nitroglycerin (Sl Tab) 0.4 Mg) 1 tab Q5M PRN SL ANGINA; Start at 15:30 Amiodarone HCl (Cordarone) 200 mg DAILY PO Last administered on 10/05/16 08:50 ; Admin Dose 200 MG; Start 10/05/16 at 09:00 Atorvastatin Calcium (Lipitor) 40 mg QHS PO Last administered on 10/04/16 20: 57; Admin Dose 40 MG; Start 10/04/16 at 21:00 Carvedilol (Coreg) 12.5 mg BID PO Last administered on 10/05/16 08:50; Admin Dose 12.5 MG; Start 10/04/16 at 21:00 Furosemide (Lasix) 40 mg DAILY PO Last administered on 10/05/16 08:50; Admin Dose 40 MG; Start 10/05/16 at 09:00 Multivitamins Therapeutic (Theragran) 1 tab DAILY PO Last administered on 08:51; Admin Dose 1 TAB; Start 10/05/16 at 09:00 Prednisone (Prednisone) 10 mg DAILY PRN PO PAIN; Start 10/04/16 at 15:30; Status Future Hold Pyridoxine HCl (Vitamin B6) 50 mg DAILY PO Last administered on 10/05/16t 08:51 ; Admin Dose 50 MG; Start 10/05/16 at 09:00 Diagnostic Test (Pha) (Accu-Chek) 1 ea 02 XX ; Start 10/05/16 at 02:00 Miscellaneous Information 1 ea NOTE XX ; Start 10/04/16 at 16:30 Glucose (Glutose) 15 gm Q15M PRN PO DECREASED GLUCOSE; Start 10/04/16 at 16:30 Glucose (Glutose) 22.5 gm Q15M PRN PO DECREASED GLUCOSE; Start 10/04/16 at 16: 30 Dextrose (D50w Syringe) 25 ml Q15M PRN IV DECREASED GLUCOSE; Start 10/04/16 at 16:30 Dextrose (D50w Syringe) 50 ml Q15M PRN IV DECREASED GLUCOSE; Start 10/04/16 at 16:30 Glucagon (Glucagen) 1 mg Q15M PRN IM DECREASED GLUCOSE; Start 10/04/16 at 16:30 Glucose (Glutose) 15 gm Q15M PRN BUCCAL DECREASED GLUCOSE; Start 10/04/16 at 16 :30 MEGGAN DEAN Oct 05, 2016 15:18
[2016-10-05] MEDS ORDERED: morphine 2 MG INJ IV PRN (17:30)
--- NOTE | 2016-10-05 18:49 | CONS ---
DATE OF ADMISSION: 10/04/2016 DATE OF CONSULTATION: 10/05/2016 PULMONARY CONSULTATION REASON FOR CONSULTATION: Management of pulmonary emboli. PRIMARY PHYSICIAN: Dr. Perez HISTORY OF PRESENT ILLNESS: Briefly, this is a 60-year-old gentleman who receives his care at [facility] with history of congestive heart failure, hyperlipidemia, gout, diabetes, hypertension, COPD who states that he has had multiple prior deep venous thromboses in his lower ex tremities (12 in total). He now presents with increasing lower extremity pain and shortness of yaid th for the past 4 to 5 days. He denies any hemoptysis. Denies any recent long travel or recent pro longed immobility. PAST MEDICAL HISTORY: As noted above. ALLERGIES: NO KNOWN DRUG ALLERGIES. MEDICATIONS: 1. He takes Coumadin at home 2. amiodarone. 3. Atorvastatin. 4. Coreg. 5. Lisinopril. 6. Tylenol. 7. Lasix. 8. Glipizide. 9. Prednisone. 10. Multivitamins. 11. Pyridoxine 12. Krill oil. PAST SURGICAL HISTORY: None. SOCIAL HISTORY: No current tobacco, alcohol or illicit drug use. FAMILY HISTORY: Apparently history of clots, history of venous thromboembolism in his maternal side of the family. REVIEW OF SYSTEMS: As noted in the HPI. PHYSICAL EXAMINATION: GENERAL: A large gentleman lying in bed in no acute distress. VITAL SIGNS: blood pressure is 118/59. Heart rate is 89, oxygen saturation is 97% on 3 liters nasa l cannula. HEENT: Normocephalic, atraumatic. NECK: Mild jugular venous distention. CARDIOVASCULAR: Regular rate and rhythm, S1 and S2 with no murmurs, rubs, or gallops. CHEST: Clear to auscultation. ABDOMEN: Soft, nontender, no hepatosplenomegaly. EXTREMITIES: There is lower extremity edema that is trace and appears to be greater on the right co mpared to left. LABORATORY DATA: BUN is 23, creatinine is 2.29. ABG: pH is 7.56, pCO2 is 25, pCO2 70. This is on room air. Troponin is less than 0.012 and 2D echo shows no evidence of RV strain and no John' s sign. No deviation of the intraventricular septum. CT pulmonary angio shows evidence of extensive bilateral pulmonary emboli involving all lobes with m ost centrally involving the right interlobar artery as well as the distal right main pulmonary arter y, lower extremity Dopplers positive for deep venous thrombosis in the right superficial femoral and popliteal veins. INR on admission was 1.4. 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 It appears that due to two-day noncompliance, he may have been perhaps subtherape utic for a prolonged period of time as his INR on admission was 1.4. At this time, there does not a ppear to be any criteria for submassive pulmonary embolism in view of normal biomarkers and normal e chocardiogram and normal RV/LV ratio on CT pulmonary angio. Therefore, treatment with half dose TPA is not reasonable path to pursue. However, IVC filter placement may be considered potentially if t he patient is to be noncompliant nursing home. RECOMMENDATIONS: 1. Continue heparin drip. 2. He would benefit from a hypercoagulable workup in view of his family history and recurrent throm boses. 3. Obviously, we will need lifelong anticoagulation. 4. We will continue to follow. Thank you for this consultation. Dictated By: JAMES UGARTE/MONICO Conf#: [id number] DID#: [id number]
[2016-10-05] MEDS: ATORVASTATIN 40 MG TAB PO SCH (20:40)
[2016-10-06] VITALS (12 sets, daily range): BP systolic 116–138; BP diastolic 59–76; PULSE 79–90; RESP 16–20
[2016-10-06] MEDS: ACCU-CHEK XX SCH (02:00)
[2016-10-06] MEDS: HYDROCODONE/APAP (10/325) TAB PO PRN ×4 (02:53→17:52)
[2016-10-06] MEDS: HEPARIN 25000 UNITS/250 ML 250 ML IV SCH (03:39)
[2016-10-06] MEDS: INSULIN ASPART [NOVOLOG] 3 ML PEN SC SCH ×4 (07:55→21:00)
[2016-10-06] MEDS: PYRIDOXINE 50 MG TAB PO SCH (08:02)
[2016-10-06] MEDS: MULTIVITAMINS THERAPEUTIC TAB PO SCH (08:02)
[2016-10-06] MEDS: FUROSEMIDE 40 MG TAB PO SCH (08:03)
[2016-10-06] MEDS: AMIODARONE 200 MG TAB PO SCH (08:04)
[2016-10-06 10:12] LABS: INR 1.32; PROTIME 16.5 Sec (12.2-14.2); PT RATIO 1.3
[2016-10-06 11:04] LABS: PARTIAL THROMBOPLASTIN TIME 76.2 Sec (25.0-35.0)
--- NOTE | 2016-10-06 11:53 | CONS ---
Date/Time of Note Date/Time of Note DATE: 10/06/16 TIME: 11:49 Assessment/Plan Assessment/Plan Additional Assessment/Plan Assessment recommendations; next 1. Patient admitted for PE and DVT involving right superficial femoral vein. 2. Questionable compliance of medication. 3. Morbid obesity. 4. History of hypertension, diabetes, COPD, gout and CHF. All appear fairly compensated at this time. Continue current treatment. Patient is a good candidate for administration of either Eliquis or apixaban for lifelong treatment. Patient has had multiple episodes of DVT and PE in the past. Consultation Date/Type/Reason Admit Date/Time Oct 04, 2016 at 13:57 Initial Consult Date 10/05/16 Type of Consultation: Pulmonary Referring Provider: MEGGAN DEAN 24 HR Interval Summary Free Text/Dictation Patient condition is stable. Denies any shortness of breath, chest pain. Any coughing or hemoptysis. General exam; elderly male, morbidly obese, currently in no distress. Exam/Review of Systems Vital Signs Vitals Vital Signs Date Time Temp Pulse Resp B/P Pulse Ox O2 Delivery O2 Flow Rate FiO2 10/06/16 11:24 99.2 80 20 132/60 97 10/06/16 08:00 Nasal Cannula 2.0 Intake and Output 10/05/16 10/05/16 10/06/16 15:00 23:00 07:00 Intake Total 900 ml 350 ml Balance 900 ml 350 ml Exam HEENT exam is; supple neck, JVD difficult to see because of thick neck. Patient has fair dentition. No neck masses. No thyromegaly. Chest examination; clear to auscultation. S1-S2 audible, no murmurs. Regular rhythm. Abdomen examination; soft, protuberant. Organomegaly difficult to assess due to morbid obesity. Extremity exam; chronic appearing skin changes in both lower extremities. [employer] examination; no focal deficit Results Result Diagram: 10/05/16 0558 10/05/16 0558 Results 24 hrs Laboratory Tests Test 10/05/16 12:27 10/05/16 17:14 10/05/16 17:38 10/05/16 20:25 Activated Partial Thromboplast Time 140.2 *H 52.6 H Bedside Glucose 106 139 Test 10/05/16 23:05 10/06/16 07:58 10/06/16 09:25 Activated Partial Thromboplast Time 152.2 *H 76.2 *H Bedside Glucose 122 Prothrombin Time 16.5 H Prothrombin Time Ratio 1.3 INR International Normalized Ratio 1.32 Medications Medications Current Medications Ondansetron HCl (Zofran Inj) 4 mg Q6H PRN IV NAUSEA AND/OR VOMITING; Start 02/10 at 15:30 Acetaminophen (Tylenol Tab) 650 mg Q6H PRN PO PAIN LEVEL 1-3 OR FEVER; Start at 15:30 Docusate Sodium (Colace) 100 mg Q12H PRN PO CONSTIPATION; Start 10/04/16 at 15: 30 Magnesium Hydroxide (Milk Of Mag) 30 ml DAILY PRN PO CONSTIPATION; Start at 15:30 Sodium Biphosphate/ Sodium Phosphate (Fleet Enema) 133 ml DAILY PRN [place] CONSTIPATION; Start 10/04/16 at 15:30 Hydralazine HCl (Apresoline) 10 mg Q6H PRN IV ELEVATED BLOOD PRESSURE; Start at 15:30 Amiodarone HCl (Cordarone) 200 mg DAILY PO Last administered on 10/06/16 08:04 ; Admin Dose 200 MG; Start 10/05/16 at 09:00 Atorvastatin Calcium (Lipitor) 40 mg QHS PO Last administered on 10/05/16 20: 40; Admin Dose 40 MG; Start 10/04/16 at 21:00 Carvedilol (Coreg) 12.5 mg BID PO Last administered on 10/06/16 08:03; Admin Dose 12.5 MG; Start 10/04/16 at 21:00 Multivitamins Therapeutic (Theragran) 1 tab DAILY PO Last administered on 08:02; Admin Dose 1 TAB; Start 10/05/16 at 09:00 Prednisone (Prednisone) 10 mg DAILY PRN PO PAIN; Start 10/04/16 at 15:30; Status Future Hold Pyridoxine HCl (Vitamin B6) 50 mg DAILY PO Last administered on 10/06/16 08:02 ; Admin Dose 50 MG; Start 10/05/16 at 09:00 Diagnostic Test (Pha) (Accu-Chek) 1 ea 02 XX ; Start 10/05/16 at 02:00 Miscellaneous Information 1 ea NOTE XX ; Start 6/10/17 at 16:30 Glucose (Glutose) 15 gm Q15M PRN PO DECREASED GLUCOSE; Start 10/04/16 at 16:30 Glucose (Glutose) 22.5 gm Q15M PRN PO DECREASED GLUCOSE; Start 10/04/16 at 16: 30 Dextrose (D50w Syringe) 25 ml Q15M PRN IV DECREASED GLUCOSE; Start 10/04/16 at 16:30 Dextrose (D50w Syringe) 50 ml Q15M PRN IV DECREASED GLUCOSE; Start 10/04/16 at 16:30 Glucagon (Glucagen) 1 mg Q15M PRN IM DECREASED GLUCOSE; Start 10/04/16 at 16:30 Glucose (Glutose) 15 gm Q15M PRN BUCCAL DECREASED GLUCOSE; Start 10/04/16 at 16 :30 Morphine Sulfate (morphine) 2 mg Q3H PRN IV SEVERE PAIN LEVEL 7-10 Last administered on 10/05/16 20:42; Admin Dose 2 MG; Start 10/05/16 at 17:30 Acetaminophen/ Hydrocodone Bitart ([place] (/325)) 1 tab Q6H PRN PO PAIN LEVEL 7-10 Last administered on 10/06/16 10:06; Admin Dose 1 TAB; Start 10/05/16 at 15:30 LARRY SCHUSTER Oct 06, 2016 11:52
--- NOTE | 2016-10-06 14:34 | PN ---
Date/Time of Note Date/Time of Note DATE: 10/06/16 TIME: 14:31 Assessment/Plan VTE Prophylaxis VTE Prophylaxis Intervention: other Lines/Catheters IV Catheter Type (from Nrsg): Saline Lock Assessment/Plan Assessment/Plan 60 yo M with pmhx VTE with warfarin nonadherence, JEREMY on CPAP, morbid obesity admitted for SOB and RLE pain, found to have bl PEs and RLE DVT #VTEs: notes reviewed and pt discussed over the phone with Dr Gomez ([facility] covering for Dr Funk). Per his rec, ok to stop heparin drip, change to oral ATC -stop heparin -start apixaban at PE treatment dosing-->10 mg PO BID x 7 days then 5 mg PO daily -hypercoag workup will not spinning frame changer as pt needs lifelong ATC -wean O2 -OOB in 2 days per heme rec #JEREMY: CPAP #obesity: RD eval #HTN: cont home BP meds prophx: full ATC Subjective 24 Hr Interval Summary Free Text/Dictation Pt reports R groin pain improving, hasn't been out of bed much Exam/Review of Systems Vital Signs Vitals Vital Signs Date Time Temp Pulse Resp B/P Pulse Ox O2 Delivery O2 Flow Rate FiO2 10/06/16 12:11 79 10/06/16 11:24 99.2 20 132/60 97 10/06/16 08:00 Nasal Cannula 2.0 Intake and Output 10/05/16 10/05/16 10/06/16 15:00 23:00 07:00 Intake Total 900 ml 350 ml Balance 900 ml 350 ml Exam nad, sitting up in bed wearing NC no mrg lungs clear obese +fungal toenails Results Result Diagram: 10/05/16 0558 10/05/16 0558 Results 24 hrs Laboratory Tests Test 10/05/16 17:14 10/05/16 17:38 10/05/16 20:25 10/05/16 23:05 Bedside Glucose 106 139 Activated Partial Thromboplast Time 52.6 H 152.2 *H Test 10/06/16 07:58 10/06/16 09:25 10/06/16 12:08 Bedside Glucose 122 123 Prothrombin Time 16.5 H Prothrombin Time Ratio 1.3 INR International Normalized Ratio 1.32 Activated Partial Thromboplast Time 76.2 *H Medications Medications Current Medications Ondansetron HCl (Zofran Inj) 4 mg Q6H PRN IV NAUSEA AND/OR VOMITING; Start 02/10 at 15:30 Acetaminophen (Tylenol Tab) 650 mg Q6H PRN PO PAIN LEVEL 1-3 OR FEVER; Start at 15:30 Docusate Sodium (Colace) 100 mg Q12H PRN PO CONSTIPATION; Start 10/04/16 at 15: 30 Magnesium Hydroxide (Milk Of Mag) 30 ml DAILY PRN PO CONSTIPATION; Start at 15:30 Sodium Biphosphate/ Sodium Phosphate (Fleet Enema) 133 ml DAILY PRN [place] CONSTIPATION; Start 10/04/16 at 15:30 Hydralazine HCl (Apresoline) 10 mg Q6H PRN IV ELEVATED BLOOD PRESSURE; Start at 15:30 Amiodarone HCl (Cordarone) 200 mg DAILY PO Last administered on 10/06/16 08:04 ; Admin Dose 200 MG; Start 10/05/16 at 09:00 Atorvastatin Calcium (Lipitor) 40 mg QHS PO Last administered on 10/05/16 20: 40; Admin Dose 40 MG; Start 10/04/16 at 21:00 Carvedilol (Coreg) 12.5 mg BID PO Last administered on 10/06/16 08:03; Admin Dose 12.5 MG; Start 10/04/16 at 21:00 Multivitamins Therapeutic (Theragran) 1 tab DAILY PO Last administered on 08:02; Admin Dose 1 TAB; Start 10/05/16 at 09:00 Prednisone (Prednisone) 10 mg DAILY PRN PO PAIN; Start 10/04/16 at 15:30; Status Future Hold Pyridoxine HCl (Vitamin B6) 50 mg DAILY PO Last administered on 10/06/16 08:02 ; Admin Dose 50 MG; Start 10/05/16 at 09:00 Diagnostic Test (Pha) (Accu-Chek) 1 ea 02 XX ; Start 10/05/16 at 02:00 Miscellaneous Information 1 ea NOTE XX ; Start 10/04/16 at 16:30 Glucose (Glutose) 15 gm Q15M PRN PO DECREASED GLUCOSE; Start 10/04/16 at 16:30 Glucose (Glutose) 22.5 gm Q15M PRN PO DECREASED GLUCOSE; Start 6/10/17 at 16: 30 Dextrose (D50w Syringe) 25 ml Q15M PRN IV DECREASED GLUCOSE; Start 10/04/16 at 16:30 Dextrose (D50w Syringe) 50 ml Q15M PRN IV DECREASED GLUCOSE; Start 10/04/16 at 16:30 Glucagon (Glucagen) 1 mg Q15M PRN IM DECREASED GLUCOSE; Start 10/04/16 at 16:30 Glucose (Glutose) 15 gm Q15M PRN BUCCAL DECREASED GLUCOSE; Start 10/04/16 at 16 :30 Morphine Sulfate (morphine) 2 mg Q3H PRN IV SEVERE PAIN LEVEL 7-10 Last administered on 10/05/16 20:42; Admin Dose 2 MG; Start 10/05/16 at 17:30 Acetaminophen/ Hydrocodone Bitart ([place] ()) 1 tab Q6H PRN PO PAIN LEVEL 7-10 Last administered on 10/06/16 10:06; Admin Dose 1 TAB; Start 10/05/16 at 15:30 Procedures Procedures TTE 6.10 without evidence of R heart strain FITO RAMOS MD Oct 06, 2016 14:34
[2016-10-06] MEDS: APIXABAN 5 MG TABLET PO SCH ×2 (15:08→21:20)
--- NOTE | 2016-10-06 18:10 | PN ---
DATE: 10/06/2016 SUBJECTIVE: The patient is not now complaining of any shortness of breath or cough. He has had no chest pain. He states that the pain in the right lower extremity has abated as well. OBJECTIVE: GENERAL: The patient is a well-developed, well-nourished male who is in no acute distress. VITAL SIGNS: Temperature 97.8, pulse 80 per minute and regular, respirations 18, blood pressure 116 /71, pulse oximetry 98% on 2 liters of oxygen by nasal cannula. SKIN: No ecchymosis, petechiae, or rashes. There are stasis changes in both pretibial and pedal ar eas. HEENT: Normocephalic. No evidence of trauma. Pupils equal, round, reactive to light and accommoda tion. There is no scleral icterus. Oral mucosa is moist without lesions. Tongue is well papillate d. There is no gingival hyperplasia. No hypertrophy or Waldeyer ring. There is nasal oxygen in pl carole. NECK: Supple. No jugular venous distention or thyroid enlargement. No carotid bruits. CHEST: Decreased breath sounds bilaterally. There are no rhonchi, wheezes, rales, or rubs. HEART: Regular sinus rhythm. No S3, S4, or murmurs. No rubs. ABDOMEN: Obese without masses or ascites. Bowel sounds are active. EXTREMITIES: No clubbing or cyanosis. As noted, there is bilateral chronic lower extremity edema w ith stasis changes. NEUROLOGIC: Normal. LABORATORY DATA: There is no laboratory done today. ASSESSMENT: 1. Occlusive deep vein thrombosis of the right superficial femoral and popliteal veins. 2. Bilateral pulmonary emboli. DISCUSSION: I agree that this patient should be treated with a direct Xa inhibitor, such as apixaba n. I actually favor apixaban to rivaroxaban. The patient is now receiving apixaban 10 mg twice a d ay. The patient apparently has previously been on apixaban when he presents [facility] a community [facility] with a thromboembolic episode. Every time the patient returns to the [facility], he is con verted back to warfarin. I feel that the failure of warfarin has been amply demonstrated. It is unclear whether this is mell use of poor followup or the patient not taking his medications correctly or faithfully. However, I feel the patient would best be served by the use of apixaban. It is true that regardless of the etiology of this patient's recurrent thromboembolic events, the th erapy will be the same and that is lifelong anticoagulation. The patient is unclear whether has ever had an evaluation for a hereditary cause for his "thrombophi adithya." The patient, however, does have 2 children who apparently have not had any thromboembolic mary nts, although his mother apparently did have a deep vein thrombosis and pulmonary emboli. I have taken the liberty of ordering a Factor V Leiden mutation as well as a prothrombin gene mutati on. Other evaluations such as antithrombin 3, protein S and protein C levels will be artifactually appear deficient only because of the recent thromboembolic event. The patient also apparently has had a normal PTT on admission, which makes it unlikely that he would have a lupus anticoagulant. Once again, thank you very much for the opportunity of participating in the medical care of this issa y interesting and pleasant patient. I will be happy to follow this patient with you and assist in h is hematologic evaluation. Dictated By: XANDER LA MD SR/NTS Conf#: [id number] DID#: [id number] CC: JUAN R BROWN MD;*EndCC*
[2016-10-06 19:10] LABS: INR 1.39; PROTIME 17.1 Sec (12.2-14.2); PT RATIO 1.3
[2016-10-06 19:11] LABS: PARTIAL THROMBOPLASTIN TIME 37.1 Sec (25.0-35.0)
[2016-10-06] MEDS: ATORVASTATIN 40 MG TAB PO SCH (21:20)
[2016-10-07] VITALS (14 sets, daily range): BP systolic 113–134; BP diastolic 62–80; PULSE 78–99; RESP 15–21
[2016-10-07] MEDS: ACCU-CHEK XX SCH (02:00)
[2016-10-07] MEDS: HYDROCODONE/APAP (10/325) TAB PO PRN ×3 (06:10→16:26)
[2016-10-07] MEDS: INSULIN ASPART [NOVOLOG] 3 ML PEN SC SCH ×4 (07:55→20:47)
[2016-10-07] MEDS: APIXABAN 5 MG TABLET PO SCH ×2 (08:01→20:42)
[2016-10-07] MEDS: PYRIDOXINE 50 MG TAB PO SCH (08:01)
[2016-10-07] MEDS: AMIODARONE 200 MG TAB PO SCH (08:04)
[2016-10-07] MEDS: MULTIVITAMINS THERAPEUTIC TAB PO SCH (08:04)
--- NOTE | 2016-10-07 12:39 | PN ---
Date/Time of Note Date/Time of Note DATE: 10/07/16 TIME: 12:39 Assessment/Plan VTE Prophylaxis VTE Prophylaxis Intervention: other (eliquis) Lines/Catheters IV Catheter Type (from Nrsg): Saline Lock Assessment/Plan Assessment/Plan 60 yo M with pmhx VTE with warfarin nonadherence, JEREMY on CPAP, morbid obesity admitted for SOB and RLE pain, found to have bl PEs and RLE DVT #VTEs: notes reviewed and pt discussed over the phone with Dr Gomez ([facility] covering for Dr Funk). Per his rec, ok to stop heparin drip, change to oral ATC -stopped heparin stared apixaban at PE treatment dosing-->10 mg PO BID x 7 days then 5 mg PO daily on 10.06 -hypercoag workup as per heme -OOB #JEREMY: CPAP #obesity: RD eval #HTN: cont home BP meds prophx: full ATC discharge pending coordination of ATC follow up Subjective 24 Hr Interval Summary Free Text/Dictation Doing well. Dropped his nail clippers Exam/Review of Systems Vital Signs Vitals Vital Signs Date Time Temp Pulse Resp B/P Pulse Ox O2 Delivery O2 Flow Rate FiO2 10/07/16 12:00 78 10/07/16 11:15 98.7 21 117/71 93 10/07/16 10:50 Nasal Cannula 2.0 10/07/16 03:15 30 Intake and Output 10/06/16 10/06/16 10/07/16 15:00 23:00 07:00 Intake Total 500 ml 600 ml Output Total 300 ml 700 ml Balance 200 ml -100 ml Exam nad no mrg lungs clear abd soft responds to questions appropriately Results Result Diagram: 10/05/16 0558 10/05/16 0558 Results 24 hrs Laboratory Tests Test 10/06/16 17:05 10/06/16 18:30 10/06/16 21:08 10/07/16 07:54 Bedside Glucose 114 145 126 Prothrombin Time 17.1 H Prothrombin Time Ratio 1.3 INR International Normalized Ratio 1.39 Activated Partial Thromboplast Time 37.1 H Test 10/07/16 12:28 Bedside Glucose 105 Medications Medications Current Medications Ondansetron HCl (Zofran Inj) 4 mg Q6H PRN IV NAUSEA AND/OR VOMITING; Start 02/10 at 15:30 Acetaminophen (Tylenol Tab) 650 mg Q6H PRN PO PAIN LEVEL 1-3 OR FEVER; Start at 15:30 Docusate Sodium (Colace) 100 mg Q12H PRN PO CONSTIPATION; Start 10/04/16 at 15: 30 Magnesium Hydroxide (Milk Of Mag) 30 ml DAILY PRN PO CONSTIPATION; Start at 15:30 Sodium Biphosphate/ Sodium Phosphate (Fleet Enema) 133 ml DAILY PRN [place] CONSTIPATION; Start 10/04/16 at 15:30 Amiodarone HCl (Cordarone) 200 mg DAILY PO Last administered on 10/07/16 08:04 ; Admin Dose 200 MG; Start 10/05/16 at 09:00 Atorvastatin Calcium (Lipitor) 40 mg QHS PO Last administered on 10/06/16 21: 20; Admin Dose 40 MG; Start 10/04/16 at 21:00 Carvedilol (Coreg) 12.5 mg BID PO Last administered on 10/07/16 08:05; Admin Dose 12.5 MG; Start 10/04/16 at 21:00 Multivitamins Therapeutic (Theragran) 1 tab DAILY PO Last administered on 08:04; Admin Dose 1 TAB; Start 10/05/16 at 09:00 Prednisone (Prednisone) 10 mg DAILY PRN PO PAIN; Start 10/04/16 at 15:30; Status Future Hold Pyridoxine HCl (Vitamin B6) 50 mg DAILY PO Last administered on 10/07/16 08:01 ; Admin Dose 50 MG; Start 10/05/16 at 09:00 Diagnostic Test (Pha) (Accu-Chek) 1 ea 02 XX ; Start 10/05/16 at 02:00 Miscellaneous Information 1 ea NOTE XX ; Start 10/04/16 at 16:30 Glucose (Glutose) 15 gm Q15M PRN PO DECREASED GLUCOSE; Start 10/04/16 at 16:30 Glucose (Glutose) 22.5 gm Q15M PRN PO DECREASED GLUCOSE; Start 10/04/16 at 16: 30 Dextrose (D50w Syringe) 25 ml Q15M PRN IV DECREASED GLUCOSE; Start 10/04/16 at 16:30 Dextrose (D50w Syringe) 50 ml Q15M PRN IV DECREASED GLUCOSE; Start 10/04/16 at 16:30 Glucagon (Glucagen) 1 mg Q15M PRN IM DECREASED GLUCOSE; Start 10/04/16 at 16:30 Glucose (Glutose) 15 gm Q15M PRN BUCCAL DECREASED GLUCOSE; Start 10/04/16 at 16 :30 Acetaminophen/ Hydrocodone Bitart ([place] ()) 1 tab Q6H PRN PO PAIN LEVEL 7-10 Last administered on 10/07/16 10:19; Admin Dose 1 TAB; Start 10/05/16 at 15:30 Apixaban (Eliquis) 10 mg BID PO Last administered on 10/07/16 08:01; Admin Dose 10 MG; Start 10/06/16 at 14:30; Stop 10/13/16 at 14:29 FITO RAMOS MD Oct 07, 2016 12:39
--- NOTE | 2016-10-07 12:50 | CONS ---
Date/Time of Note Date/Time of Note DATE: 10/07/16 TIME: 12:47 Assessment/Plan Assessment/Plan Additional Assessment/Plan Assessment recommendations; next 1. Patient admitted for recurrent DVT this time involving the right superficial femoral vein with PE. 2. Patient was off anticoagulation prior to the most recent episode. 3. Morbid obesity. 4. History of sleep apnea, gout, HTN and CHF. All appear compensated. Patient likely will be switched to apixaban for long-term use. Awaiting approval from [facility]. Consultation Date/Type/Reason Admit Date/Time Oct 04, 2016 at 13:57 Initial Consult Date 10/05/16 Type of Consultation: Pulmonary Referring Provider: MEGGAN DEAN 24 HR Interval Summary Free Text/Dictation Patient condition is stable. Denies any shortness of breath, often, chest pain , hemoptysis or sputum production. Denies any neck pain. General exam; middle-aged male, morbidly obese, currently in no distress, awake and alert. Exam/Review of Systems Vital Signs Vitals Vital Signs Date Time Temp Pulse Resp B/P Pulse Ox O2 Delivery O2 Flow Rate FiO2 10/07/16 12:00 78 10/07/16 11:15 98.7 21 117/71 93 10/07/16 10:50 Nasal Cannula 2.0 10/07/16 03:15 30 Intake and Output 10/06/16 10/06/16 10/07/16 15:00 23:00 07:00 Intake Total 500 ml 600 ml Output Total 300 ml 700 ml Balance 200 ml -100 ml Exam HEENT examination; supple neck, no JVD. No lymphadenopathy. Midline trachea. No thyromegaly. Patient has fair dentition. Pupils are midsize and reactive to light bilaterally. Next Chest examination; clear to ulceration. S1-S2 audible, no murmurs. Regular rhythm. Abdomen examination; soft, protuberant. Bowel sounds audible. No tenderness. Extremity examination; chronic appearing severe skin changes in both lower extremities. [employer] examination; no focal deficit. Results Result Diagram: 10/05/16 0558 10/05/16 0558 Results 24 hrs Laboratory Tests Test 10/06/16 17:05 10/06/16 18:30 10/06/16 21:08 10/07/16 07:54 Bedside Glucose 114 145 126 Prothrombin Time 17.1 H Prothrombin Time Ratio 1.3 INR International Normalized Ratio 1.39 Activated Partial Thromboplast Time 37.1 H Test 10/07/16 12:28 Bedside Glucose 105 Medications Medications Current Medications Ondansetron HCl (Zofran Inj) 4 mg Q6H PRN IV NAUSEA AND/OR VOMITING; Start 02/10 at 15:30 Acetaminophen (Tylenol Tab) 650 mg Q6H PRN PO PAIN LEVEL 1-3 OR FEVER; Start at 15:30 Docusate Sodium (Colace) 100 mg Q12H PRN PO CONSTIPATION; Start 10/04/16 at 15: 30 Magnesium Hydroxide (Milk Of Mag) 30 ml DAILY PRN PO CONSTIPATION; Start at 15:30 Sodium Biphosphate/ Sodium Phosphate (Fleet Enema) 133 ml DAILY PRN [place] CONSTIPATION; Start 10/04/16 at 15:30 Amiodarone HCl (Cordarone) 200 mg DAILY PO Last administered on 10/07/16 08:04 ; Admin Dose 200 MG; Start 10/05/16 at 09:00 Atorvastatin Calcium (Lipitor) 40 mg QHS PO Last administered on 10/06/16 21: 20; Admin Dose 40 MG; Start 10/04/16 at 21:00 Carvedilol (Coreg) 12.5 mg BID PO Last administered on 10/07/16 08:05; Admin Dose 12.5 MG; Start 10/04/16 at 21:00 Multivitamins Therapeutic (Theragran) 1 tab DAILY PO Last administered on 08:04; Admin Dose 1 TAB; Start 10/05/16 at 09:00 Prednisone (Prednisone) 10 mg DAILY PRN PO PAIN; Start 10/04/16 at 15:30; Status Future Hold Pyridoxine HCl (Vitamin B6) 50 mg DAILY PO Last administered on 10/07/16 08:01 ; Admin Dose 50 MG; Start 10/05/16 at 09:00 Diagnostic Test (Pha) (Accu-Chek) 1 ea 02 XX ; Start 10/05/16 at 02:00 Miscellaneous Information 1 ea NOTE XX ; Start 10/04/16 at 16:30 Glucose (Glutose) 15 gm Q15M PRN PO DECREASED GLUCOSE; Start 10/04/16 at 16:30 Glucose (Glutose) 22.5 gm Q15M PRN PO DECREASED GLUCOSE; Start 10/04/16 at 16: 30 Dextrose (D50w Syringe) 25 ml Q15M PRN IV DECREASED GLUCOSE; Start 10/04/16 at 16:30 Dextrose (D50w Syringe) 50 ml Q15M PRN IV DECREASED GLUCOSE; Start 10/04/16 at 16:30 Glucagon (Glucagen) 1 mg Q15M PRN IM DECREASED GLUCOSE; Start 10/04/16 at 16:30 Glucose (Glutose) 15 gm Q15M PRN BUCCAL DECREASED GLUCOSE; Start 10/04/16 at 16 :30 Acetaminophen/ Hydrocodone Bitart ([place] ()) 1 tab Q6H PRN PO PAIN LEVEL 7-10 Last administered on 10/07/16 10:19; Admin Dose 1 TAB; Start 10/05/16 at 15:30 Apixaban (Eliquis) 10 mg BID PO Last administered on 10/07/16 08:01; Admin Dose 10 MG; Start 10/06/16 at 14:30; Stop 10/13/16 at 14:29 LARRY SCHUSTER Oct 07, 2016 12:49
--- NOTE | 2016-10-07 20:37 | PN ---
DATE: 10/07/2016 SUBJECTIVE: The patient states he is feeling well. Has no complaints of chest pain or cough. He h as not noticed any unusual bruising or bleeding. He still does complain of some discomfort in the m edial aspect of the right thigh. OBJECTIVE: GENERAL: The patient is a well-developed, obese male who is in no acute distress. VITAL SIGNS: Temperature 98.6, pulse 85 per minute and regular, respirations 18, blood pressure is 134/76, and pulse oximetry is 98% presently on room air. SKIN: No ecchymoses. No petechiae or rashes. There are marked stasis changes in the bilateral low er extremities. HEENT: Normocephalic. No evidence of trauma. Pupils equal, round, react to light and accommodatio n. Sclerae nonicteric. Oral mucosa is moist without lesions. NECK: Supple. No jugular venous distention or thyroid enlargement. CHEST: Decreased breath sounds throughout, but there are no rhonchi, wheezes, rales, or rubs. NODE S: No palpable lymphadenopathy. HEART: Regular sinus rhythm. No S3, S4, or murmurs. ABDOMEN: Obese without masses or ascites. EXTREMITIES: No clubbing or cyanosis. There are the significant bilateral stasis changes involving both lower extremities, particularly in the pretibial and pedal areas. NEUROLOGIC: Normal. LABORATORY DATA: Protime 17.1 seconds, INR 1.39, and PTT 37.1 seconds at 1800 on 10/06/2016. ASSESSMENT: 1. Occlusive deep vein thrombosis of right superficial femoral and popliteal veins. 2. Bilateral pulmonary emboli. The patient remains on apixaban. He is tolerating this well. He has no unusual bruising or bleedin g. As noted yesterday, I have obtained a Factor V Leiden mutation as well as a prothrombin gene mutatio n. The results of this will affect the patient's therapy, as he will require lifelong anticoagulati on. It may, however, be of importance to the patient's children who are living elsewhere. Dictated By: XANDER LA MD SR/NTS Conf#: [id number] DID#: [id number] CC: JUAN R BROWN MD;*End*
[2016-10-07] MEDS: ATORVASTATIN 40 MG TAB PO SCH (20:41)
[2016-10-08] MEDS: HYDROCODONE/APAP (10/325) TAB PO PRN ×2 (01:59→12:37)
[2016-10-08] MEDS: ACCU-CHEK XX SCH (02:00)
[2016-10-08 02:43] VITALS: BP 124/71; RESP 20
[2016-10-08 07:22] VITALS: BP 112/54; RESP 20
[2016-10-08] MEDS: INSULIN ASPART [NOVOLOG] 3 ML PEN SC SCH ×3 (08:07→17:23)
[2016-10-08] MEDS: MULTIVITAMINS THERAPEUTIC TAB PO SCH (08:12)
[2016-10-08] MEDS: AMIODARONE 200 MG TAB PO SCH (08:13)
[2016-10-08] MEDS: PYRIDOXINE 50 MG TAB PO SCH (08:13)
[2016-10-08] MEDS: APIXABAN 5 MG TABLET PO SCH (08:13)
[2016-10-08 09:46] VITALS: PULSE 88
[2016-10-08] MEDS ORDERED: APIX5TAB PO ×2 (11:08→11:10)
--- NOTE | 2016-10-08 11:16 | PDOCDIS ---
Discharge Instructions DIAGNOSIS Discharge Diagnosis: pulmonary embolism CONDITION Patient Condition: Good HOME CARE INSTRUCTIONS: Special Diet: carb controlled diet ACTIVITY: Activity Restrictions: Slowly Increase Activity FOLLOW UP/APPOINTMENTS Appointments Follow up with your regular doctor within 10 days to get additional blood thinner prescriptions Follow up with the hybrid tester/blood specialist Dr Gomez to review the results of the blood clot tests he ordered Office Address [address] [place] [address] Office FITO RAMOS MD Oct 08, 2016 11:16
--- NOTE | 2016-10-08 11:18 | DS ---
Date/Time of Note Date/Time of Note DATE: 10/08/16 TIME: 11:17 Discharge Summary Admission/Discharge Info Admit Date/Time Oct 04, 2016 at 13:57 Discharge Date/Time Final Diagnosis multiple venous thromboemboli-->both pulmonary emboli and deep venous thromboses Patient Condition: Good Consults hematology, pulmonology Procedures 6.[address] chest IMPRESSION: Emboli in branches of the pulmonary artery to all lobes on the right as well as the left upper lobe. 6.10 LE duplex IMPRESSION: Occlusive DVT in the right superficial femoral and popliteal veins. 6.11 TTE Conclusions 1. Normal left ventricular cavity size. Lower limits of normal left ventricular systolic function. Tissue Doppler/Mitral Doppler indices are consistent with impaired relaxation (Stage I diastolic dysfunction). Mild concentric left ventricular hypertrophy. The left ventricular ejection fraction is visually estimated at 50 %. 2. Normal appearance of the mitral valve leaflets. Trivial mitral regurgitation. 3. Normal appearance of the tricuspid valve. There is trivial tricuspid regurgitation. 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 He has had some subjective chills. No fevers. No upper or lower GI bleeding. No diarrhea or constipation. No headaches, dizziness or loss of consciousness. He normally is supposed to take CPAP at night, but has not been doing this for the last few weeks. He also did not take his Coumadin for the last 2 days. He normally takes Coumadin for his prior history of DVTs, as mentioned above. [facility] up at the [facility]. When he came into the ER today, he had a CTA of the chest performed that showed positive pulmonary embolism in the branches of the pulmonary artery to all lobes on the right, as well as the left upper lobe. The patient was started on heparin drip in the ER. 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 He does not believe he has ever been diagnosed with any kind of blood disorder or clotting problems. Hospital Course Pt initially started on heparin drip for management of his VTEs. Pulm consulted for tpa eval. Given no R heart strain, nl RV/LV ration on CT, no indication for tpa. Case discussed with both pulm and heme service and given previous issues/ subtherapeutic INRs on warfarin, decision was made to change pt's ATC to Eliquis. Heparin drip was stopped and pt was changed to oral anticoagulation. Given pt's preponderance of VTEs, [facility] ordered factor 5 [place] to eval for genetic predisposition. The result of that test was still pending at time of discharge. Follow ups: Heme within 2 weeks to review S7Pywlev testing PCP within 2 weeks to continue Eliquis Home Meds Active Scripts Apixaban* (Eliquis*) 5 Mg Tablet, 10 MG PO BID for 6 Days, #12 TAB Take these first. Continue this higher dose of the blood thinner for 6 days. After these run out, switch to the lower dose. Prov:FITO RAMOS MD 10/08/16 Apixaban* (Eliquis*) 5 Mg Tablet, 5 MG PO BID for 7 Days, #14 TAB Start this lower dose after you have completed the 5 days of the higher dose of this blood thinner. DO NOT START TAKING BEFORE 6..17 Prov:FITO RAMOS MD 10/08/16 Reported Medications Prednisone* (Prednisone*) 10 Mg Tab, 10 MG PO DAILY Y for PAIN, TAB 10/04/16 Acetaminophen* (Acetaminophen*) 500 MG Extra Strength Tablet, 500 MG PO Q12 Y for PAIN AND OR ELEVATED TEMP, TAB 10/04/16 Atorvastatin* (Atorvastatin*) 40 Mg Tablet, 40 MG PO QHS, #30 TAB 10/04/16 Atorvastatin* (Atorvastatin*) 40 Mg Tablet, 40 MG PO QHS, #30 TAB 10/04/16 Pyridoxine Hcl* (Pyridoxine Hcl*) 50 Mg Tablet, 50 MG PO DAILY, TAB 10/04/16 Amiodarone Hcl* (Pacerone*) 200 Mg Tablet, 200 MG PO DAILY, TAB 10/04/16 Glipizide* (Glipizide*) 5 Mg Tablet, 5 MG PO DAILY, TAB 10/04/16 Krill Oil (KRILL OIL) 500 Mg Capsule, 500 MG PO DAILY, CAP 10/04/16 Multivitamins* (Theragran*) 1 Tab Tab, 1 TAB PO DAILY, TAB 10/04/16 Furosemide* (Furosemide*) 40 Mg Tablet, 40 MG PO DAILY, TAB 10/04/16 Carvedilol* (Carvedilol*) 12.5 Mg Tablet, 12.5 MG PO BID, #60 TAB 10/04/16 Lisinopril* (Lisinopril*) 10 Mg Tablet, 10 MG PO DAILY, #30 TAB 10/04/16 Discontinued Reported Medications Warfarin Sodium* (Coumadin*) 5 Mg Tablet, 5 MG PO DAILY, TAB 10/04/16 Primary Care Provider Not On Staff Doctor Pending Labs Laboratory Tests Test 10/07/16 12:28 10/07/16 17:10 10/07/16 20:46 10/08/16 08:06 Bedside Glucose 105mg/dL (70-220) 125mg/dL (70-220) 177mg/dL (70-220) 98mg/dL (70-220) FITO RAMOS MD Oct 08, 2016 11:17
[2016-10-08 11:35] VITALS: PULSE 77
--- NOTE | 2016-10-08 12:45 | PN ---
DATE: 10/08/2016 SUBJECTIVE: Eusebio Whatley is stable this morning. Denies any shortness of breath or chest pain. PHYSICAL EXAMINATION: VITAL SIGNS: Temperature 98, pulse 88, blood pressure 112/54, O2 saturation 98% on 2 L nasal cannul a. NECK: Supple. No JVD or lymphadenopathy. CARDIAC: S1, S2, no added sounds or murmurs. CHEST: Diminished air entry bilaterally. ABDOMEN: Soft, nontender. No guarding or rebound. EXTREMITIES: No cyanosis, clubbing, or edema. NEUROLOGIC: Generalized weakness. LABORATORY DATA: Not drawn today. IMPRESSION AND PLAN: 1. Sleep apnea. The patient is pending delivery of CPAP device. 2. Morbid obesity. 3. Chronic venous stasis. 4. Thromboembolic disease with a history of noncompliance on Coumadin PLAN: 1. Continue CPAP therapy. 2. Wound care. 3. Continue Eliquis. 4. Stable for discharge either to home or [facility] facility. Dictated By: BENOIT ALLRED/MONICO Conf#: [id number] DID#: [id number]
[2016-10-08 17:07] LABS: AADO2 Arterial 39.2 mmHg (7.0-24.0); Allen Test ACCEPTAB; Arterial COHb 0 % (0.0-3.0); Arterial Fraction of Oxyhgb 91.8 % (93.0-99.0); Arterial HCO3 25.2 mmol/L (22.0-26.0); Arterial MetHb 0.2 % (0.0-1.5); Arterial Total Hemglobin 10.7 g/dl (12.0-18.0); MODE ROOM AIR
--- NOTE | 2016-10-08 17:18 | PN ---
DATE: 10/08/2016 HEMATOLOGY PROGRESS NOTE SUBJECTIVE: The patient is complaining of increasing pain in the medial aspect of right thigh. Sta jet it is increasing when he tries to ambulate or stand. No complaints of chest pain or shortness o f breath. OBJECTIVE: GENERAL: The patient is a well-developed, obese male who is in no acute distress, but complain of p ain in the medial aspect of his right thigh. VITAL SIGNS: Temperature 98.3, pulse 77 per minute and regular, respirations 20, blood pressure 124 /71, pulse oximetry 96% on 2 liters of nasal oxygen. SKIN: No ecchymosis, no petechiae or rashes. There are marked stasis changes on both lower extremi ties. HEENT: Normocephalic. No evidence of trauma. No scleral icterus. There is nasal oxygen in place. NECK: Supple, no jugular venous distention or thyroid enlargement. CHEST: Decreased breath sounds throughout, but no rhonchi, wheezes, rales or rubs. HEART: Regular sinus rhythm. No S3, S4 or murmurs. No rubs. ABDOMEN: Obese without masses or ascites. EXTREMITIES: No clubbing or cyanosis. There is tenderness on palpation of the medial aspect of rig ht thigh. Somewhat warmer to the touch than the left. NEUROLOGIC: Normal. ASSESSMENT: 1. Occlusive deep vein thrombosis of right superficial femoral vein and popliteal veins. 2. Bilateral pulmonary emboli. DISCUSSION: The patient is still somewhat symptomatic in that he does have pain in the area of the known clot in the right superficial femoral and popliteal veins. This is not unexpected. The patie nt is, however, short of breath with minimal exertion. The patient is continuing on apixaban. He is still receiving a loading dose of 10 mg twice a day. The factor V Leiden mutation and prothrombin gene mutation assays are pending as of this point. It is not clear that the patient can actually tolerate discharge at this time to home. Perhaps coul d go to an extended care facility. Dictated By: XANDER LA MD, SR/MONICO Conf#: [id number] DID#: [id number]
== END 2016-10-08 18:20 | disposition home health service (06) | DRG 176 ==
LOC: E/R 09:13 → TEL 13:57 → MS2 10-08 01:05
PROVIDERS: ADMIT Internal Medicine; ATTEND Internal Medicine
PROC: 5A09357 Assistance with Respiratory Ventilation, Less than 24 Consecutive Hours, Continuous Positive Airway Pressure (ICD-10-PCS; principal; 2016-10-06)
DX: I26.99 Other pulmonary embolism without acute cor pulmonale (principal); E11.22 Type 2 diabetes mellitus with diabetic chronic kidney disease; I13.0 Hypertensive heart and chronic kidney disease with heart failure and stage 1 through stage 4 chronic kidney disease, or unspecified chronic kidney disease; I50.9 Heart failure, unspecified; Z68.41 Body mass index [BMI] 40.0-44.9, adult; I82.411 Acute embolism and thrombosis of right femoral vein; I82.431 Acute embolism and thrombosis of right popliteal vein; Z79.01 Long term (current) use of anticoagulants; Z87.891 Personal history of nicotine dependence; Z86.718 Personal history of other venous thrombosis and embolism; E66.01 Morbid (severe) obesity due to excess calories; J44.9 Chronic obstructive pulmonary disease, unspecified; G47.33 Obstructive sleep apnea (adult) (pediatric); N18.9 Chronic kidney disease, unspecified; E78.00 Pure hypercholesterolemia, unspecified; M10.9 Gout, unspecified; Z91.19 Patient's noncompliance with other medical treatment and regimen
CPT/HCPCS: 36415; 36600; 71010; 71275; 80048; 80061; 82803; 82962; 83036; 83735; 84100; 84439; 84443; 84484; 85025; 85610; 85730; 93005; 93306; 93971; 94660; 96374; 96376; J1644; J1815; J2270; J3475; J7040; Q9967

== ENCOUNTER 2017-04-17 14:30 | Emergency (ER) | payer BC, OTHER ==
[~2017-04-17] VITALS: Ht 182.9 cm; Wt 153.0 kg
[~2017-04-17 14:30] MED LIST: ACET-141 PO; AMIO200T40 PO; APIX5TAB PO; ATOR40TA68 PO; CARV12.579 PO; FURO40TA4 PO; GLIP5TAB13 PO; KRIL500C PO; LISI10TA2 PO; MULTI PO; PRED10TA PO; PYRI50TA14 PO
[2017-04-17 14:36] VITALS: Ht 182.9 cm; Wt 153.0 kg
[2017-04-17] MEDS ORDERED: KETOROLAC 30 MG INJ IM STA (14:58)
[2017-04-17] MEDS ORDERED: HYDROCODONE/APAP (5/325) TAB PO ONE (15:00)
--- NOTE | 2017-04-17 15:35 | RADRPT ---
PROCEDURE: XR Wrist. CLINICAL INDICATION: Pain TECHNIQUE: Right wrist, 4 views. COMPARISON: None. FINDINGS: The bone mineralization is age appropriate. There is no acute fracture or dislocation. Osseous alignment appears maintained. There is no significant joint space narrowing. IMPRESSION: 1. No acute fracture or dislocation of the right wrist. RPTAT: AAEE Deandra Silveira Physician Date Time Electronically viewed and signed by Deandra Silveira, Physician on 04/17/2017 15:35 PH/
[2017-04-17] MEDS ORDERED: predniSONE 20 MG TAB PO ONE (16:00)
[2017-04-17] MEDS ORDERED: PRED20TA PO (16:18)
[2017-04-17] MEDS ORDERED: IBUP-1542 PO (16:18)
[2017-04-17] MEDS ORDERED: HYDR-906 PO (16:18)
--- NOTE | 2017-04-17 16:22 | ERD ---
ER Documentation Chief Complaint Chief Complaint RIGHT WRIST PAIN, ONSET THIS AM, NO INJURY HPI 61-year-old male complains of sudden onset of right wrist pain and swelling since this morning. Denies any history of trauma. Denies any fevers, restricted range of motion or weakness. Patient has history of severe psoriasis. Patient denies any pain in other joints. ROS All systems reviewed and are negative except as per history of present illness. Medications Home Meds Active Scripts Ibuprofen* (Motrin*) 600 Mg Tab, 600 MG PO Q6, #20 TAB Prov:STANFORD SKELTON MD 04/17/17 Prednisone* (Prednisone*) 20 Mg Tab, 40 MG PO DAILY for 3 Days, TAB Start April 18, 2017 Prov:STANFORD SKELTON MD 04/17/17 Hydrocodone/Acetaminophen (Clifton 5-325 Tablet) 1 Each Tablet, 1 TAB PO Q6H Y for PAIN, #10 TAB Prov:STANFORD SKELTON MD 04/17/17 Apixaban* (Eliquis*) 5 Mg Tablet, 10 MG PO BID for 6 Days, #12 TAB Take these first. Continue this higher dose of the blood thinner for 6 days. After these run out, switch to the lower dose. Prov:FITO RAMOS MD 10/08/16 Apixaban* (Eliquis*) 5 Mg Tablet, 5 MG PO BID for 7 Days, #14 TAB Start this lower dose after you have completed the 5 days of the higher dose of this blood thinner. DO NOT START TAKING BEFORE 6.19.17 Prov:FITO RAMOS MD 10/08/16 Reported Medications Prednisone* (Prednisone*) 10 Mg Tab, 10 MG PO DAILY Y for PAIN, TAB 10/04/16 Acetaminophen* (Acetaminophen*) 500 MG Extra Strength Tablet, 500 MG PO Q12 Y for PAIN AND OR ELEVATED TEMP, TAB 10/04/16 Atorvastatin* (Atorvastatin*) 40 Mg Tablet, 40 MG PO QHS, #30 TAB 10/04/16 Atorvastatin* (Atorvastatin*) 40 Mg Tablet, 40 MG PO QHS, #30 TAB 10/04/16 Pyridoxine Hcl* (Pyridoxine Hcl*) 50 Mg Tablet, 50 MG PO DAILY, TAB 10/04/16 Amiodarone Hcl* (Pacerone*) 200 Mg Tablet, 200 MG PO DAILY, TAB 10/04/16 Glipizide* (Glipizide*) 5 Mg Tablet, 5 MG PO DAILY, TAB 10/04/16 Krill Oil (KRILL OIL) 500 Mg Capsule, 500 MG PO DAILY, CAP 10/04/16 Multivitamins* (Theragran*) 1 Tab Tab, 1 TAB PO DAILY, TAB 10/04/16 Furosemide* (Furosemide*) 40 Mg Tablet, 40 MG PO DAILY, TAB 10/04/16 Carvedilol* (Carvedilol*) 12.5 Mg Tablet, 12.5 MG PO BID, #60 TAB 10/04/16 Lisinopril* (Lisinopril*) 10 Mg Tablet, 10 MG PO DAILY, #30 TAB 10/04/16 Allergies Allergies: Coded Allergies: No Known Allergy (Unverified , 10/04/16) PMhx/Soc Medical and Surgical Hx: pt denies Surgical Hx History of Surgery: No Anesthesia Reaction: No Hx Neurological Disorder: No Hx Respiratory Disorders: Yes (PE) Hx Cardiac Disorders: Yes (HTN,Hyperlipidemia,CHF) Hx Psychiatric Problems: Yes (PSORIASIS) Hx Miscellaneous Medical Probl: Yes (type 2 DM,psoriasis) Hx Alcohol Use: No Hx Substance Use: No Hx Tobacco Use: No Smoking Status: Former smoker Physical Exam Vitals Vital Signs Date Time Temp Pulse Resp B/P Pulse Ox O2 Delivery O2 Flow Rate FiO2 04/17/17 14:36 99.0 99 18 154/106 99 Physical Exam Const: [] Alert, obese, no apparent distress. Head: Atraumatic Eyes: Normal Conjunctiva ENT: Normal External Ears, Nose and Mouth. Neck: Full range of motion..~ No meningismus. Resp: Clear to auscultation bilaterally Cardio: Regular rate and rhythm, no murmurs Abd: Soft, non tender, non distended. Normal bowel sounds Skin: No petechiae or rashes severe plaque psoriasis lesions mostly in the lower extremities but also on the trunk and head. Back: No midline or flank tenderness Ext: No cyanosis, or edema. Generalized synovitis of the right wrist without warmth or erythema. No deformities. No appreciable neurologic or tendon deficits. Refill is less than 2 seconds. Neur: Awake and alert Psych: Normal Mood and Affect Results 24 hrs Laboratory Tests Test 04/17/17 15:24 Bedside Glucose 103mg/dL Current Medications Medications (Trade) Dose Ordered Sig/[place] Route PRN Reason Start Time Stop Time Status Last Admin Dose Admin Ketorolac Tromethamine (Toradol) 30 mg ONCE STAT IM 04/17/17 14:58 04/17/17 15:00 DC 04/17/17 15:21 Acetaminophen/ Hydrocodone Bitart (Clif[place] (5/325)) 1 tab ONCE ONCE PO 04/17/17 15:00 04/17/17 15:01 DC 04/17/17 15:22 Prednisone (Prednisone) 40 mg ONCE ONCE PO 04/17/17 16:00 04/17/17 16:01 DC Procedures/MDM X-ray right wrist 3V Interpreted by me: Scaphoid: [Normal] Bones: [No fracture] Joints: [No dislocation] Foreign body: [None] impression-normal right wrist x-ray Patient presents with acute swelling and pain of the right wrist. He has signs and symptoms consistent with acute tendinitis or sprain. He may have occult trauma from sleeping. Current signs or symptoms do not suggest septic arthritis , ischemia, tendon or neurologic deficits, fracture or dislocation. Psoriatic arthritis is a consideration given patient's severe psoriasis. There is no evidence to suggest DVT. Patient was given Toradol, Clif[place] here in the ED and placed in a right wrist Velcro brace. Patient is neurovascular intact after the brace. He will be treated with instructions for ice, primary care follow- up and return for fevers, redness, new worsening symptoms otherwise with orthopedist. The patient was stable with no new complaints during the ER course. Clinically, there is no current evidence to suggest meningitis, sepsis, acute abdomen, pneumonia, acute coronary syndrome, pulmonary embolism, or any other emergent condition appearing to require further evaluation or hospitalization. The patient should certainly return for any new or worsening symptoms per the aftercare instructions. They should otherwise follow-up with her primary care doctor for reevaluation this week. Departure Diagnosis: Primary Impression: Pain in wrist Laterality: right Qualified Code: M25.531 - Right wrist pain Condition: Stable Patient Instructions: Arthralgia Referrals: RICK LE MD, HRAIR E MD Additional Instructions: X-ray normal. Signs consistent with acute tendinitis or strain. Recheck for redness, fevers, new worsening symptoms. Apply ice at home and see orthopedist her primary doctor this week for further evaluation. STANFORD SKELTON MD Apr 17, 2017 16:22
== END 2017-04-17 16:30 | disposition home or self-care (01) ==
LOC: FTE 14:30
DX: M25.531 Pain in right wrist (principal); M65.841 Other synovitis and tenosynovitis, right hand; I10 Essential (primary) hypertension; I50.9 Heart failure, unspecified; E11.9 Type 2 diabetes mellitus without complications; Z79.01 Long term (current) use of anticoagulants; Z79.84 Long term (current) use of oral hypoglycemic drugs; Z87.891 Personal history of nicotine dependence
CPT/HCPCS: 73110; 82962; 96372; J1885; J7512; Z7502; Z7610

== ENCOUNTER 2017-11-18 07:16 | Emergency (ER) | END 2017-11-18 10:24 | disposition home or self-care (01) ==